=== PATIENT | male | born 1965 | race Caucasian/White ===

== ENCOUNTER 2017-02-10 14:05 | Emergency (ER) | payer BC, MEDICAID ==
[2017-02-10 14:09] VITALS: BP 145/96; PULSE 70; RESP 20; TEMP 97.8
[2017-02-10] MEDS ORDERED: ORPHENADRINE 30 MG/ML 2 ML VIAL IM STA (14:51)
--- NOTE | 2017-02-10 15:48 | XR ---
EXAMINATION TYPE: XR lumbosacral spine min 4V DATE OF EXAM: 02/10/2017 CLINICAL HISTORY: pain COMPARISON: NONE TECHNIQUE: Frontal, lateral, and oblique images of the lumbar spine are obtained. FINDINGS: There are 5 lumbar type vertebral bodies identified. The lumbar spine shows satisfactory alignment without evidence of acute fracture or dislocation. Vertebral body heights are within normal limits. Severe degenerative disc space narrowing and vacuum disc at L4-5 and L5-S1. Ventral and dors al spondylosis is identified. Bilateral foraminal encroachment at each of these levels. The overlyi ng soft tissue appears unremarkable. IMPRESSION: No acute fracture or dislocation is seen in the lumbar spine. Degenerative changes as di scussed. ICD 10 NO FRACTURE, INITIAL EVALUATION
--- NOTE | 2017-02-10 16:03 | ED ---
Back Pain HPI - General Chief Complaint: Back Pain/Injury Stated Complaint: Back Pain Time Seen by Provider: 02/10/17 14:30 Source: patient Limitations: no limitations - History of Present Illness Initial Comments: Patient is a 51-year-old male presenting to the emergency department with complaints of lumbar sacral back pain primarily right side. Patient states he had a sore back from fishing over the last 3 days and when he bent over to tie his shoe yesterday he felt his lower back give out. Patient states he drove from [place] to [place] today. Patient currently complains of right-sided lumbar back pain, related 8 out of 10, described as sharp, exacerbated with movement, relieved with rest, radiating down his right buttocks. Patient denies recent illness, fevers, nausea, vomiting, shortness breath, chest pain, abdominal pain, distal paresthesia. Patient denies urinary or fecal incontinence. Patient denies saddle anesthesia. No treatment prior to arrival. Patient denies history of similar episode. - Related Data Home Medications Medication Instructions Recorded Confirmed Ibuprofen [Motrin] 800 mg PO DAILY PRN 02/10/17 02/10/17 Irbesartan/Hydrochlorothiazide 1 tab PO DAILY 02/10/17 02/10/17 [Irbesartan-Hctz 300-12.5 mg Tb] Multivitamins, Thera [Multivitamin 1 tab PO DAILY 02/10/17 02/10/17 (formulary)] Previous Rx's Medication Instructions Recorded HYDROcodone/APAP 5-325MG [[place] 1 tab PO Q6H PRN #12 tab 02/10/17 5-325] Orphenadrine [Norflex] 100 mg PO Q12H #10 tablet.er 02/10/17 methylPREDNISolone Dose Pack 4 mg PO DIRECTED #21 package 02/10/17 [Medrol Dose Pack] Allergies Allergy/AdvReac Type Severity Reaction Status Date / Time No Known Allergies Allergy Verified 02/10/17 14:26 Review of Systems ROS Statement: Those systems with pertinent positive or pertinent negative responses have been documented in the HPI. ROS Other: All systems not noted in ROS Statement are negative. Past Medical History Past Medical History: Hypertension Additional Past Medical History / Comment(s): diverticulitis History of Any Multi-Drug Resistant Organisms: None Reported Past Surgical History: Orthopedic Surgery Additional Past Surgical History / Comment(s): left hand Past Psychological History: No Psychological Hx Reported Smoking Status: Never smoker Past Alcohol Use History: None Reported Past Drug Use History: None Reported General Exam Limitations: no limitations General appearance: alert, in no apparent distress Head exam: Present: atraumatic, normocephalic, normal inspection Eye exam: Present: normal appearance ENT exam: Present: normal exam, mucous membranes moist, normal external ear exam Neck exam: Present: normal inspection, full ROM. Absent: tenderness, lymphadenopathy Respiratory exam: Present: normal lung sounds bilaterally. Absent: respiratory distress, wheezes, rales, rhonchi, stridor Cardiovascular Exam: Present: regular rate, normal rhythm, normal heart sounds. Absent: systolic murmur, diastolic murmur, rubs, gallop, clicks GI/Abdominal exam: Present: soft, normal bowel sounds. Absent: tenderness Extremities exam: Present: normal inspection, full ROM. Absent: tenderness Back exam: Present: paraspinal tenderness (Right-sided). Absent: full ROM ( Decreased range of motion with flexion and extension and rotation), CVA tenderness (R), CVA tenderness (L), muscle spasm, vertebral tenderness, rash noted Expanded Back exam: Absent: saddle anesthesia Back exam: Sciatic Notch Tenderness: Right, Negative Straight Leg Raising: Left , Right Neurological exam: Present: alert, oriented X3, CN II-XII intact, abnormal gait. Absent: motor sensory deficit Psychiatric exam: Present: normal affect, normal mood Skin exam: Present: warm, dry, intact, normal color Course Vital Signs 02/10/17 14:07 Temperature 97.8 F Pulse Rate 70 Respiratory 20 Rate Blood Pressure 145/96 O2 Sat by Pulse 98 Oximetry Medical Decision Making - Medical Decision Making Sciatica to right lumbar region. Lumbar spine x-ray with evidence of degenerative changes without acute fractures. Patient treated with Norflex in the emergency department. Patient given prescription for steroids, pain medicine, and muscle relaxer. Patient instructed to follow-up with primary care and orthopedic service as needed. Patient agrees with treatment plan. Discharge instructions and return parameters reviewed. - Radiology Data Radiology results: report reviewed X-ray lumbosacral spine: No acute fracture or dislocation is seen in the lumbar spine. Severe degenerative disc space narrowing and vacuum disc at L4-5 and L5- S1. Ventral and dorsal spondylosis is identified. Bilateral foraminal encroachment at each of these levels. Overlying soft tissue appears unremarkable. Disposition Clinical Impression: Sciatica, Degenerative disc disease, lumbar Disposition: HOME SELF-CARE Condition: Good Instructions: Sciatica (ED), Acute Low Back Pain (ED), Lower Back Exercises (ED ) Additional Instructions: Continue pain medication, steroid pack, and muscle relaxers as prescribed. Apply ice or heat for comfort. Avoid bed rest. Follow-up with primary care physician and orthopedic service for persistent pain. Please return to the emergency department with any new or worsening symptoms. Prescriptions: HYDROcodone/APAP 5-325MG [[place] 5-325] 1 tab PO Q6H PRN #12 tab PRN Reason: Pain methylPREDNISolone Dose Pack [Medrol Dose Pack] 4 mg PO DIRECTED #21 package Orphenadrine [Norflex] 100 mg PO Q12H #10 tablet.er Referrals: None,Stated [REFERRING] - 1-2 days Kurt Umana MD [STAFF PHYSICIAN] - 1-2 days Time of Disposition: 16:03
== END 2017-02-10 16:21 | disposition home or self-care (01) ==
LOC: EC 14:05
DX: M51.16 Intervertebral disc disorders with radiculopathy, lumbar region (principal); M47.896 Other spondylosis, lumbar region; I10 Essential (primary) hypertension; Z79.899 Other long term (current) drug therapy
CPT/HCPCS: 99283; 96372; 72110; J2360

== ENCOUNTER 2018-01-26 09:35 | Inpatient (IN) | payer BC, MEDICAID ==
[2018-01-26] MEDS ORDERED: PIPERACILLIN-TAZOBACTAM 3.375 GM in DEXTROSE/WATER 1 50ML.BAG IVPB STA (10:16)
--- NOTE | 2018-01-26 10:19 | ED ---
General Adult HPI - General Chief complaint: Abdominal Pain Stated complaint: ABNORMAL CT Time Seen by Provider: 01/26/18 10:09 Source: patient, family, RN notes reviewed Mode of arrival: ambulatory Limitations: no limitations - History of Present Illness Initial comments: Patient is a pleasant 52-year-old male presenting to the emergency Department with abdominal discomfort. Symptoms have been close to 2 weeks. Patient saw his doctor and was started on antibiotics. Symptoms did not improve and patient had antibiotics changed. Patient then had computed tomography scan done 2 days ago. Patient got call with report of abscess, questionable air pocket. Patient was advised to go to the emergency department for IV antibiotics. Patient does have a history of similar symptoms previously associated with diverticulitis. No fevers. No nausea vomiting. Normal appetite. No constipation or diarrhea. - Related Data Home Medications Medication Instructions Recorded Confirmed Irbesartan/Hydrochlorothiazide 1 tab PO DAILY 02/10/17 01/26/18 [Irbesartan-Hctz 300-12.5 mg Tb] Ciprofloxacin HCl [Cipro] 500 mg PO Q12HR 01/26/18 01/26/18 Escitalopram [Lexapro] 10 mg PO HS 01/26/18 01/26/18 L.acidoph,Paracasei, B.lactis 1 cap PO DAILY 01/26/18 01/26/18 [Probiotic] metroNIDAZOLE [Flagyl] 500 mg PO TID 01/26/18 01/26/18 Allergies Allergy/AdvReac Type Severity Reaction Status Date / Time No Known Allergies Allergy Verified 01/26/18 09:58 Review of Systems ROS Statement: Those systems with pertinent positive or pertinent negative responses have been documented in the HPI. ROS Other: All systems not noted in ROS Statement are negative. Constitutional: Denies: fever Eyes: Denies: eye pain ENT: Denies: ear pain Respiratory: Denies: cough Cardiovascular: Denies: chest pain Endocrine: Denies: fatigue Gastrointestinal: Reports: abdominal pain. Denies: nausea, vomiting, diarrhea, constipation Genitourinary: Denies: dysuria Musculoskeletal: Denies: back pain Skin: Denies: rash Neurological: Denies: weakness Past Medical History Past Medical History: Hypertension Additional Past Medical History / Comment(s): diverticulitis History of Any Multi-Drug Resistant Organisms: None Reported Past Surgical History: Orthopedic Surgery Additional Past Surgical History / Comment(s): left hand Past Psychological History: No Psychological Hx Reported Smoking Status: Never smoker Past Alcohol Use History: None Reported Past Drug Use History: None Reported General Exam Limitations: no limitations General appearance: alert, in no apparent distress Head exam: Present: atraumatic Eye exam: Present: normal appearance, PERRL ENT exam: Present: normal oropharynx Neck exam: Present: normal inspection Respiratory exam: Present: normal lung sounds bilaterally Cardiovascular Exam: Present: regular rate, normal rhythm GI/Abdominal exam: Present: soft, tenderness (Mild tenderness left lower quadrant). Absent: distended, guarding, rebound, rigid, pulsatile mass Extremities exam: Present: normal inspection Neurological exam: Present: alert Psychiatric exam: Present: normal affect, normal mood Skin exam: Present: normal color Course Vital Signs 01/26/18 01/26/18 01/26/18 09:48 10:53 12:30 Temperature 98.4 F Pulse Rate 69 62 55 L Respiratory 18 18 18 Rate Blood Pressure 124/85 111/63 111/63 O2 Sat by Pulse 95 96 99 Oximetry 01/26/18 13:06 Temperature Pulse Rate 54 L Respiratory 18 Rate Blood Pressure 109/70 O2 Sat by Pulse 97 Oximetry EKG Findings - EKG Comments: EKG Findings:: Sinus bradycardia 53. MT 182. QRS 110. QT 448. QTC 420. Normal axis. Normal QRS. No acute ST change. Medical Decision Making - Medical Decision Making Computed tomography scan from outside facility shows some diverticulosis without diverticulitis. There are small air collections within a thickened portion of the colonic wall suspicious for localized intramural abscess. Patient reevaluated. Patient and family updated. Case was discussed in detail with Dr. paul from [facility] emergency department physician, who will admit. Case also discussed in detail with Dr. Ruiz, who will consult. IV antibiotics have been started. - Lab Data Result diagrams: 01/26/18 11:19 01/26/18 10:50 Lab Results 01/26/18 01/26/18 01/26/18 Range/Units 10:50 10:50 11:19 WBC 6.8 (3.8-10.6) k/uL RBC 5.30 (4.30-5.90) m/uL Hgb 15.8 (13.0-17.5) gm/dL Hct 45.9 (39.0-53.0) % MCV 86.6 (80.0-100.0) fL MCH 29.8 (25.0-35.0) pg MCHC 34.4 (31.0-37.0) g/dL RDW 13.3 (11.5-15.5) % Plt Count 252 (150-450) k/uL Neutrophils % 58 % Lymphocytes % 28 % Monocytes % 9 % Eosinophils % 2 % Basophils % 1 % Neutrophils # 4.0 (1.3-7.7) k/uL Lymphocytes # 1.9 (1.0-4.8) k/uL Monocytes # 0.6 (0-1.0) k/uL Eosinophils # 0.1 (0-0.7) k/uL Basophils # 0.1 (0-0.2) k/uL PT (9.0-12.0) sec INR (<1.2) APTT (22.0-30.0) sec Sodium 137 (137-145) mmol/L Potassium 4.4 (3.5-5.1) mmol/L Chloride 102 (98-107) mmol/L Carbon Dioxide 23 (22-30) mmol/L Anion Gap 12 mmol/L BUN 16 (9-20) mg/dL Creatinine 0.80 (0.66-1.25) mg/dL Est GFR (CKD-EPI)AfAm >90 (>60 ml/min/1.73 sqM) Est GFR (CKD-EPI)NonAf >90 (>60 ml/min/1.73 sqM) Glucose 105 H (74-99) mg/dL Plasma Lactic Acid Porfirio 1.5 (0.7-2.0) mmol/L Calcium 9.6 (8.4-10.2) mg/dL Total Bilirubin 0.6 (0.2-1.3) mg/dL AST 41 (17-59) U/L ALT 71 (21-72) U/L Alkaline Phosphatase 53 (38-126) U/L Total Protein 6.9 (6.3-8.2) g/dL Albumin 4.3 (3.5-5.0) g/dL 01/26/18 Range/Units 11:19 WBC (3.8-10.6) k/uL RBC (4.30-5.90) m/uL Hgb (13.0-17.5) gm/dL Hct (39.0-53.0) % MCV (80.0-100.0) fL MCH (25.0-35.0) pg MCHC (31.0-37.0) g/dL RDW (11.5-15.5) % Plt Count (150-450) k/uL Neutrophils % % Lymphocytes % % Monocytes % % Eosinophils % % Basophils % % Neutrophils # (1.3-7.7) k/uL Lymphocytes # (1.0-4.8) k/uL Monocytes # (0-1.0) k/uL Eosinophils # (0-0.7) k/uL Basophils # (0-0.2) k/uL PT 11.3 (9.0-12.0) sec INR 1.2 H (<1.2) APTT 24.0 (22.0-30.0) sec Sodium (137-145) mmol/L Potassium (3.5-5.1) mmol/L Chloride (98-107) mmol/L Carbon Dioxide (22-30) mmol/L Anion Gap mmol/L BUN (9-20) mg/dL Creatinine (0.66-1.25) mg/dL Est GFR (CKD-EPI)AfAm (>60 ml/min/1.73 sqM) Est GFR (CKD-EPI)NonAf (>60 ml/min/1.73 sqM) Glucose (74-99) mg/dL Plasma Lactic Acid Porfirio (0.7-2.0) mmol/L Calcium (8.4-10.2) mg/dL Total Bilirubin (0.2-1.3) mg/dL AST (17-59) U/L ALT (21-72) U/L Alkaline Phosphatase (38-126) U/L Total Protein (6.3-8.2) g/dL Albumin (3.5-5.0) g/dL - Radiology Data Radiology results: image reviewed (Abdominal x-ray shows no acute process) Disposition Clinical Impression: Infection as cause of abscess of colon Disposition: ADMITTED IP TO THIS [facility] Referrals: Berry Herrera MD [Primary Care Provider] - 1-2 days Decision Time: 13:43
[2018-01-26] MEDS: SODIUM CHLORIDE 0.9% 500 ML IV SCH (10:56)
[2018-01-26 11:31] LABS: ALT 71 U/L (21-72); AST 41 U/L (17-59); Albumin 4.3 g/dL (3.5-5.0); Alkaline Phosphatase 53 U/L (38-126); Anion Gap 12 mmol/L; Blood Urea Nitrogen 16 mg/dL (9-20); Calcium 9.6 mg/dL (8.4-10.2); Carbon Dioxide 23 mmol/L (22-30); Chloride 102 mmol/L (98-107); Glucose 105 mg/dL (74-99); Potassium 4.4 mmol/L (3.5-5.1); Sodium 137 mmol/L (137-145); Total Bilirubin 0.6 mg/dL (0.2-1.3); Total Protein 6.9 g/dL (6.3-8.2)
[2018-01-26 11:35] LABS: Basophils # (A) 0.1 k/uL (0-0.2); Basophils % (A) 1 %; Eosinophils # (A) 0.1 k/uL (0-0.7); Eosinophils % (A) 2 %; HCT 45.9 % (39.0-53.0); HGB 15.8 gm/dL (13.0-17.5); Lymphocytes # (A) 1.9 k/uL (1.0-4.8); Lymphocytes % (A) 28 %; MCH 29.8 pg (25.0-35.0); MCHC 34.4 g/dL (31.0-37.0); MCV 86.6 fL (80.0-100.0); Mean Platelet Volume 6.8; Monocytes # (A) 0.6 k/uL (0-1.0); Monocytes % (A) 9 %; Neutrophils % (A) 58 %; Platelet Count 252 k/uL (150-450); RDW 13.3 % (11.5-15.5); WBC 6.8 k/uL (3.8-10.6)
[2018-01-26 11:46] LABS: INR 1.2 (<1.2); Prothrombin Time 11.3 sec (9.0-12.0)
--- NOTE | 2018-01-26 12:29 | XR ---
EXAMINATION TYPE: XR abdomen complete w decub DATE OF EXAM: 01/26/2018 COMPARISON: NONE HISTORY: History of diverticulitis is abdominal pain. TECHNIQUE: Supine, upright, and left side down lateral decubitus views of the abdomen are obtained. FINDINGS: There is no evidence for pneumoperitoneum. The bowel gas pattern is unremarkable as there is air thr oughout nondilated small and large bowel. No differential air fluid levels. No unusual calcificatio ns. Moderate degenerative changes of the lumbar and femoral acetabular joints spine. Lung bases are clear. IMPRESSION: Nonobstructive bowel gas pattern. No evidence of pneumoperitoneum.
[2018-01-26] MEDS ORDERED: ONDANSETRON 4 MG/2 ML VIAL IVP PRN (13:43)
[2018-01-26] MEDS ORDERED: MORPHINE SULFATE 2 MG/ML SYRINGE IV PRN ×2 (13:43→16:17)
[2018-01-26] MEDS ORDERED: NALOXONE 0.4 MG/ML 1 ML VIAL IV PRN ×2 (13:43→16:17)
[2018-01-26] MEDS ORDERED: ACETAMINOPHEN TAB 325 MG TAB PO PRN (16:17)
--- NOTE | 2018-01-26 16:39 | P.HPIM ---
History of Present Illness H&P Date: 01/26/18 Chief Complaint: Abdominal pain This is a 52-year-old male with past medical history of hypertension was admitted to the hospital with abdominal pain that has been gone for the last few days patient (primary care physician computed tomography scan of the abdomen was done a few days ago showed that the patient could have abdominal wall abscess patient continued to have abdominal pain so came to the ER currently is not complaining of any chest pain or shortness of breath and does not appear to be in distress Review of systems and systems has been reviewed all negative and positive findings as per HPI Past medical history hypertension Past surgical history orthopedic surgery Social history smokes occasionally Drinks occasionally Family history not known at this time Constitutional: No acute distress, conversant, pleasant Eyes: Anicteric sclerae, moist conjunctiva, no lid-lag PERRLA ENMT: Cranial nerves grossly intact Neck: Supple, FROM, no masses, or JVD No carotid bruits No thyromegaly Lungs: Clear to auscultation Clear to percussion Normal respiratory effort, no accessory muscle use Cardiovascular: Heart regular in rate and rhythm, No murmurs, gallops, or rubs No peripheral edema Abdominal: Soft with some suprapubic tenderness Skin: Normal temperature, tone, texture, turgor No induration No subcutaneous nodules No rash, lesions No ulcers Extremities: No digital cyanosis No clubbing Pedal pulses intact and symmetrical Radial pulses intact and symmetrical Normal gait and station No calf tenderness Psychiatric:Alert and oriented to person, place and time Appropriate affect Intact judgement Neuro: No obvious focal weakness Vital Signs - 24 hr 01/26/18 01/26/18 01/26/18 09:48 10:53 12:30 Temperature 98.4 F Pulse Rate 69 62 55 L Respiratory 18 18 18 Rate Blood Pressure 124/85 111/63 111/63 O2 Sat by Pulse 95 96 99 Oximetry 01/26/18 01/26/18 01/26/18 13:06 15:41 16:17 Temperature 98.4 F Pulse Rate 54 L 55 L 55 L Respiratory 18 16 16 Rate Blood Pressure 109/70 115/70 115/70 O2 Sat by Pulse 97 96 96 Oximetry Laboratory Results - last 24 hr 01/26/18 01/26/18 01/26/18 10:50 10:50 11:19 WBC 6.8 RBC 5.30 Hgb 15.8 Hct 45.9 MCV 86.6 MCH 29.8 MCHC 34.4 RDW 13.3 Plt Count 252 Neutrophils % 58 Lymphocytes % 28 Monocytes % 9 Eosinophils % 2 Basophils % 1 Neutrophils # 4.0 Lymphocytes # 1.9 Monocytes # 0.6 Eosinophils # 0.1 Basophils # 0.1 PT INR APTT Sodium 137 Potassium 4.4 Chloride 102 Carbon Dioxide 23 Anion Gap 12 BUN 16 Creatinine 0.80 Est GFR (CKD-EPI)AfAm >90 Est GFR (CKD-EPI)NonAf >90 Glucose 105 H Plasma Lactic Acid Porfirio 1.5 Calcium 9.6 Total Bilirubin 0.6 AST 41 ALT 71 Alkaline Phosphatase 53 Total Protein 6.9 Albumin 4.3 01/26/18 11:19 WBC RBC Hgb Hct MCV MCH MCHC RDW Plt Count Neutrophils % Lymphocytes % Monocytes % Eosinophils % Basophils % Neutrophils # Lymphocytes # Monocytes # Eosinophils # Basophils # PT 11.3 INR 1.2 H APTT 24.0 Sodium Potassium Chloride Carbon Dioxide Anion Gap BUN Creatinine Est GFR (CKD-EPI)AfAm Est GFR (CKD-EPI)NonAf Glucose Plasma Lactic Acid Porfirio Calcium Total Bilirubin AST ALT Alkaline Phosphatase Total Protein Albumin Assessment and plan possible abdominal wall abscess we will continue patient currently on Zosyn we will add also vancomycin Will repeat the computed tomography scan of the abdomen says that he has been contacted by the ER Hypertension DVT and GI prophylaxis We will also check cardiac enzymes and EKG Admit the patient to regular medical floor We'll keep the patient nothing by mouth and on IV hydration Until we get the computed tomography scan results Past Medical History Past Medical History: GERD/Reflux, Hypertension Additional Past Medical History / Comment(s): RT SIDE DOMINANT, diverticulitis History of Any Multi-Drug Resistant Organisms: None Reported Past Surgical History: Hernia Repair, Orthopedic Surgery, Tubal Ligation Additional Past Surgical History / Comment(s): left hand sx to reattached 2nd, 3rd and 4th digits d/t work related injury-has full function of hand, lt ing hernia repair, lt er drum replaced, egd/colonoscopy Past Anesthesia/Blood Transfusion Reactions: No Reported Reaction Smoking Status: Current some day smoker - Past Family History Mother Family Medical History: Cancer Additional Family Medical History / Comment(s): lung cancer- hx smoking Father Additional Family Medical History / Comment(s): had tb while in [place]-had scar tissue. from lung cancer Medications and Allergies Home Medications Medication Instructions Recorded Confirmed Type Irbesartan/Hydrochlorothiazide 1 tab PO DAILY 02/10/17 01/26/18 History [Irbesartan-Hctz 300-12.5 mg Tb] Ciprofloxacin HCl [Cipro] 500 mg PO Q12HR 01/26/18 01/26/18 History Escitalopram [Lexapro] 10 mg PO HS 01/26/18 01/26/18 History L.acidoph,Paracasei, B.lactis 1 cap PO DAILY 01/26/18 01/26/18 History [Probiotic] metroNIDAZOLE [Flagyl] 500 mg PO TID 01/26/18 01/26/18 History Allergies Allergy/AdvReac Type Severity Reaction Status Date / Time No Known Allergies Allergy Verified 01/26/18 09:58 Physical Exam Vitals: Vital Signs Temp Pulse Resp BP Pulse Ox 01/26/18 16:17 98.4 F 55 L 16 115/70 96 01/26/18 15:41 55 L 16 115/70 96 01/26/18 13:06 54 L 18 109/70 97 01/26/18 12:30 55 L 18 111/63 99 01/26/18 10:53 62 18 111/63 96 01/26/18 09:48 98.4 F 69 18 124/85 95 Intake and Output 01/26/18 01/26/18 01/26/18 06:59 14:59 22:59 Other: Weight 113.398 kg Results CBC & Chem 7: 01/26/18 11:19 01/26/18 10:50 Labs: Abnormal Lab Results - Last 24 Hours (Table) 01/26/18 01/26/18 Range/Units 10:50 11:19 INR 1.2 H (<1.2) Glucose 105 H (74-99) mg/dL
[2018-01-26] MEDS: PIPERACILLIN-TAZOBACTAM 3.375 GM in DEXTROSE/WATER 1 50ML.BAG IVPB SCH ×2 (17:17→23:35)
[2018-01-26] MEDS: SODIUM CHLORIDE 0.9% 1,000 ML IV SCH (17:28)
--- NOTE | 2018-01-26 17:29 | CT ---
EXAMINATION TYPE: CT abdomen pelvis w con DATE OF EXAM: 01/26/2018 COMPARISON: NONE HISTORY: lt lower quad abscess abdominal pain CT DLP: 1962 mGycm Automated exposure control for dose reduction was used. TECHNIQUE: Helical acquisition of images was performed from the lung bases through the pelvis. CONTRAST: Performed with Oral Contrast and with IV Contrast, patient injected with 100 mL of Isovue 300. FINDINGS: There is linear density at the right lung base related to atelectasis. There is no pleural effusion. Liver spleen pancreas gallbladder appear normal. Bile ducts are not dilated. There is no adrenal mass . Kidneys show satisfactory contrast opacification. There is no hydronephrosis. There is no retroperi toneal adenopathy. Ureters are not dilated. There is no ascites. There are multiple sigmoid diverticu la. There are multiple diverticula also in the remainder of the colon. There is minimal fat stranding posterior to the proximal sigmoid colon. There is no evidence of free air. Bladder distends smoothly . There is no evidence of a pelvic mass. Appendix appears normal. There is 1 cm cortical cyst on the lateral left kidney. I see no bony destructive process. There is mild spinal stenosis at L4-5 due to facet arthropathy and posterior disc herniation. IMPRESSION: SIGMOID DIVERTICULOSIS. THERE IS EVIDENCE FOR VERY MINIMAL SIGMOID DIVERTICULITIS IN THE PROXIMAL SIG MOID COLON. NO DRAINABLE FLUID COLLECTION.
[2018-01-26] MEDS ORDERED: VANCOMYCIN IV PER PHARMACY 1 EACH MISC MISCELLANE PRN (18:24)
[2018-01-26 18:54] LABS: Creatine Kinase MB 0.5 ng/mL (0.0-2.4)
[2018-01-26] MEDS: ESCITALOPRAM 10 MG TAB PO SCH (20:18)
[2018-01-26] MEDS: VANCOMYCIN 1,750 MG in SODIUM CHLORIDE 0.9% 250 ML IVPB SCH (20:20)
[2018-01-27 00:17] LABS: Creatine Kinase 87 U/L (55-170)
[2018-01-27 00:28] LABS: Creatine Kinase MB 0.6 ng/mL (0.0-2.4); Troponin I <0.012 ng/mL (0.000-0.034)
[2018-01-27] MEDS: VANCOMYCIN 1,750 MG in SODIUM CHLORIDE 0.9% 250 ML IVPB SCH (06:18)
[2018-01-27] MEDS: SODIUM CHLORIDE 0.9% 1,000 ML IV SCH ×2 (06:18→19:03)
[2018-01-27 07:00] LABS: Basophils % (A) 1 %; Eosinophils # (A) 0.1 k/uL (0-0.7); Eosinophils % (A) 2 %; HCT 44.9 % (39.0-53.0); HGB 15.9 gm/dL (13.0-17.5); Lymphocytes # (A) 1.2 k/uL (1.0-4.8); Lymphocytes % (A) 18 %; MCH 30.6 pg (25.0-35.0); MCHC 35.3 g/dL (31.0-37.0); MCV 86.7 fL (80.0-100.0); Mean Platelet Volume 6.7; Monocytes # (A) 0.6 k/uL (0-1.0); Monocytes % (A) 8 %; Neutrophils # (A) 4.7 k/uL (1.3-7.7); Neutrophils % (A) 70 %; Platelet Count 210 k/uL (150-450); RBC 5.17 m/uL (4.30-5.90); RDW 14.1 % (11.5-15.5); WBC 6.7 k/uL (3.8-10.6)
[2018-01-27 07:27] LABS: ALT 62 U/L (21-72); AST 34 U/L (17-59); Albumin 3.5 g/dL (3.5-5.0); Alkaline Phosphatase 49 U/L (38-126); Anion Gap 9 mmol/L; Blood Urea Nitrogen 14 mg/dL (9-20); Calcium 8.9 mg/dL (8.4-10.2); Carbon Dioxide 23 mmol/L (22-30); Chloride 106 mmol/L (98-107); Glucose 98 mg/dL (74-99); Potassium 4.2 mmol/L (3.5-5.1); Sodium 138 mmol/L (137-145); Total Bilirubin 0.6 mg/dL (0.2-1.3); Total Protein 5.8 g/dL (6.3-8.2)
[2018-01-27 07:41] LABS: Creatine Kinase 86 U/L (55-170)
[2018-01-27 07:53] LABS: Creatine Kinase MB 0.4 ng/mL (0.0-2.4); Troponin I <0.012 ng/mL (0.000-0.034)
[2018-01-27] MEDS: PIPERACILLIN-TAZOBACTAM 3.375 GM in DEXTROSE/WATER 1 50ML.BAG IVPB SCH ×3 (08:40→23:55)
--- NOTE | 2018-01-27 09:42 | P.GSCN ---
History of Present Illness Consult date: 01/27/18 Reason for Consult: Diverticulitis History of present illness: This a 52-year-old male with a chronic history of diverticulitis. The patient has had 3 or 4 previous attacks of diverticulitis. Patient states that 10 days ago he felt pain left lower quadrant. He was treated with oral antibiotic by his family doctor. He had an outpatient CAT scan performed by his family doctor. On his outpatient CAT scan is found to have a intramural abscess. The patient was instructed to present himself to the emergency room. He was admitted last night for treatment of diverticulitis. The patient currently denies any significant abdominal pain. Past Medical History Past Medical History: GERD/Reflux, Hypertension Additional Past Medical History / Comment(s): RT SIDE DOMINANT, diverticulitis History of Any Multi-Drug Resistant Organisms: None Reported Past Surgical History: Hernia Repair, Orthopedic Surgery, Tubal Ligation Additional Past Surgical History / Comment(s): left hand sx to reattached 2nd, 3rd and 4th digits d/t work related injury-has full function of hand, lt ing hernia repair, lt er drum replaced, egd/colonoscopy Past Anesthesia/Blood Transfusion Reactions: No Reported Reaction Smoking Status: Current some day smoker - Past Family History Mother Family Medical History: Cancer Additional Family Medical History / Comment(s): lung cancer- hx smoking Father Additional Family Medical History / Comment(s): had tb while in [place]-had scar tissue. from lung cancer Medications and Allergies Home Medications Medication Instructions Recorded Confirmed Type Irbesartan/Hydrochlorothiazide 1 tab PO DAILY 02/10/17 01/26/18 History [Irbesartan-Hctz 300-12.5 mg Tb] Ciprofloxacin HCl [Cipro] 500 mg PO Q12HR 01/26/18 01/26/18 History Escitalopram [Lexapro] 10 mg PO HS 01/26/18 01/26/18 History L.acidoph,Paracasei, B.lactis 1 cap PO DAILY 01/26/18 01/26/18 History [Probiotic] metroNIDAZOLE [Flagyl] 500 mg PO TID 01/26/18 01/26/18 History Allergies Allergy/AdvReac Type Severity Reaction Status Date / Time No Known Allergies Allergy Verified 01/26/18 09:58 Surgical - Exam Vital Signs Temp Pulse Resp BP Pulse Ox 98.4 F 69 18 124/85 95 06/15/18 09:48 01/26/18 09:48 01/26/18 09:48 01/26/18 09:48 01/26/18 09:48 - General well developed, no distress - Eyes PERRL - ENT normal pinna - Neck no masses - Respiratory normal expansion - Cardiovascular Rhythm: regular - Abdomen Abdomen: soft, non tender Results - Labs 01/27/18 06:39 01/27/18 06:39 Abnormal Lab Results - Last 24 Hours (Table) 01/26/18 01/26/18 01/27/18 Range/Units 10:50 11:19 06:39 INR 1.2 H (<1.2) Glucose 105 H (74-99) mg/dL Total Protein 5.8 L (6.3-8.2) g/dL Diabetes panel 01/26/18 01/27/18 Range/Units 10:50 06:39 Sodium 137 138 (137-145) mmol/L Potassium 4.4 4.2 (3.5-5.1) mmol/L Chloride 102 106 (98-107) mmol/L Carbon Dioxide 23 23 (22-30) mmol/L BUN 16 14 (9-20) mg/dL Creatinine 0.80 0.91 (0.66-1.25) mg/dL Glucose 105 H 98 (74-99) mg/dL Calcium 9.6 8.9 (8.4-10.2) mg/dL AST 41 34 (17-59) U/L ALT 71 62 (21-72) U/L Alkaline Phosphatase 53 49 (38-126) U/L Total Protein 6.9 5.8 L (6.3-8.2) g/dL Albumin 4.3 3.5 (3.5-5.0) g/dL Calcium panel 01/26/18 01/27/18 Range/Units 10:50 06:39 Calcium 9.6 8.9 (8.4-10.2) mg/dL Albumin 4.3 3.5 (3.5-5.0) g/dL Pituitary panel 01/26/18 01/27/18 Range/Units 10:50 06:39 Sodium 137 138 (137-145) mmol/L Potassium 4.4 4.2 (3.5-5.1) mmol/L Chloride 102 106 (98-107) mmol/L Carbon Dioxide 23 23 (22-30) mmol/L BUN 16 14 (9-20) mg/dL Creatinine 0.80 0.91 (0.66-1.25) mg/dL Glucose 105 H 98 (74-99) mg/dL Calcium 9.6 8.9 (8.4-10.2) mg/dL Adrenal panel 01/26/18 01/27/18 Range/Units 10:50 06:39 Sodium 137 138 (137-145) mmol/L Potassium 4.4 4.2 (3.5-5.1) mmol/L Chloride 102 106 (98-107) mmol/L Carbon Dioxide 23 23 (22-30) mmol/L BUN 16 14 (9-20) mg/dL Creatinine 0.80 0.91 (0.66-1.25) mg/dL Glucose 105 H 98 (74-99) mg/dL Calcium 9.6 8.9 (8.4-10.2) mg/dL Total Bilirubin 0.6 0.6 (0.2-1.3) mg/dL AST 41 34 (17-59) U/L ALT 71 62 (21-72) U/L Alkaline Phosphatase 53 49 (38-126) U/L Total Protein 6.9 5.8 L (6.3-8.2) g/dL Albumin 4.3 3.5 (3.5-5.0) g/dL Assessment and Plan Assessment: Chronic diverticulitis. Patient is almost pain free. We'll continue IV antibiotics. We will anticipate discharge in the a.m.
--- NOTE | 2018-01-27 11:42 | P.PN ---
Subjective Progress Note Date: 01/27/18 Principal diagnosis: Patient feels okay abdominal pain improved no chest pain no shortness of breath Constitutional: No acute distress, conversant, pleasant Eyes: Anicteric sclerae, moist conjunctiva, no lid-lag PERRLA ENMT: NC/AT Oropharynx clear, no erythema, exudates Neck: Supple, FROM, no masses, or JVD No carotid bruits No thyromegaly Lungs: Clear to auscultation Clear to percussion Normal respiratory effort, no accessory muscle use Cardiovascular: Heart regular in rate and rhythm, No murmurs, gallops, or rubs No peripheral edema Abdominal: Soft Nontender, Skin: Normal temperature, tone, texture, turgor No induration No subcutaneous nodules No rash, lesions No ulcers Extremities: No digital cyanosis No clubbing Pedal pulses intact and symmetrical Radial pulses intact and symmetrical Normal gait and station No calf tenderness Psychiatric:Alert and oriented to person, place and time Appropriate affect Intact judgement Neuro: No focal weakness Laboratory Results - last 24 hr 01/26/18 01/26/18 01/26/18 11:19 17:49 23:24 WBC RBC Hgb Hct MCV MCH MCHC RDW Plt Count Neutrophils % Lymphocytes % Monocytes % Eosinophils % Basophils % Neutrophils # Lymphocytes # Monocytes # Eosinophils # Basophils # PT 11.3 INR 1.2 H APTT 24.0 Sodium Potassium Chloride Carbon Dioxide Anion Gap BUN Creatinine Est GFR (CKD-EPI)AfAm Est GFR (CKD-EPI)NonAf Glucose Calcium Total Bilirubin AST ALT Alkaline Phosphatase Total Creatine Kinase 91 87 CK-MB (CK-2) 0.5 0.6 CK-MB (CK-2) Rel Index 0.5 0.7 Troponin I <0.012 Total Protein Albumin 01/27/18 01/27/18 01/27/18 06:39 06:39 06:39 WBC 6.7 RBC 5.17 Hgb 15.9 Hct 44.9 MCV 86.7 MCH 30.6 MCHC 35.3 RDW 14.1 Plt Count 210 Neutrophils % 70 Lymphocytes % 18 Monocytes % 8 Eosinophils % 2 Basophils % 1 Neutrophils # 4.7 Lymphocytes # 1.2 Monocytes # 0.6 Eosinophils # 0.1 Basophils # 0.0 PT INR APTT Sodium 138 Potassium 4.2 Chloride 106 Carbon Dioxide 23 Anion Gap 9 BUN 14 Creatinine 0.91 Est GFR (CKD-EPI)AfAm >90 Est GFR (CKD-EPI)NonAf >90 Glucose 98 Calcium 8.9 Total Bilirubin 0.6 AST 34 ALT 62 Alkaline Phosphatase 49 Total Creatine Kinase 86 CK-MB (CK-2) 0.4 CK-MB (CK-2) Rel Index 0.5 Troponin I <0.012 Total Protein 5.8 L Albumin 3.5 Vital Signs 01/26/18 01/26/18 01/26/18 09:48 10:53 12:30 Temperature 98.4 F Pulse Rate 69 62 55 L Pulse Rate [ Supine Pulse Oximetery] Respiratory 18 18 18 Rate Blood Pressure 124/85 111/63 111/63 Blood Pressure [Right Arm Supine] O2 Sat by Pulse 95 96 99 Oximetry 01/26/18 01/26/18 01/26/18 13:06 15:41 16:00 Temperature Pulse Rate 54 L 55 L Pulse Rate [ Supine Pulse Oximetery] Respiratory 18 16 16 Rate Blood Pressure 109/70 115/70 Blood Pressure [Right Arm Supine] O2 Sat by Pulse 97 96 Oximetry 01/26/18 01/26/18 01/27/18 16:17 23:00 06:36 Temperature 98.4 F 97.0 F L 98.4 F Pulse Rate 55 L Pulse Rate [ 62 58 L Supine Pulse Oximetery] Respiratory 16 18 18 Rate Blood Pressure 115/70 Blood Pressure 126/73 124/75 [Right Arm Supine] O2 Sat by Pulse 96 96 96 Oximetry Diverticulitis we will continue patient on current IV antibiotics Abdominal pain resolved Advance diet as tolerated Anticipate discharge in a.m. Objective - Vital Signs Vital signs: Vital Signs Temp 98.4 F 01/27/18 06:36 Pulse 58 L 01/27/18 06:36 Resp 18 01/27/18 06:36 BP 124/75 01/27/18 06:36 Pulse Ox 96 01/27/18 06:36 Intake & Output 01/26/18 01/27/18 01/27/18 18:59 06:59 18:59 Intake Total 0 Balance 0 Weight 113.398 kg Intake: Oral 0 Other: Voiding Method Toilet # Voids 1 - Labs CBC & Chem 7: 01/27/18 06:39 01/27/18 06:39 Labs: Abnormal Lab Results - Last 24 Hours (Table) 06/15/18 06/16/18 Range/Units 11:19 06:39 INR 1.2 H (<1.2) Total Protein 5.8 L (6.3-8.2) g/dL
[2018-01-27] MEDS: ESCITALOPRAM 10 MG TAB PO SCH (21:10)
[2018-01-28 01:04] VITALS: RESP 18
[2018-01-28] MEDS: SODIUM CHLORIDE 0.9% 1,000 ML IV SCH (05:28)
[2018-01-28 06:20] VITALS: BP 147/95; PULSE 64; TEMP 98.1
[2018-01-28] MEDS: PIPERACILLIN-TAZOBACTAM 3.375 GM in DEXTROSE/WATER 1 50ML.BAG IVPB SCH (08:55)
--- NOTE | 2018-01-28 12:03 | P.PN ---
Progress Note - Text Progress Note Date: 01/28/18 The patient feels well. He has no complaints of pain. On exam is lesser stable. His abdomen soft. Resolving diverticulitis. Patient be discharged home. He'll be seen in the office next week.
--- NOTE | 2018-01-28 12:18 | P.DS ---
Providers Date of admission: 01/26/18 13:43 Attending physician: Tanmay Soto MD This is a 52-year-old male admitted to the hospital with abdominal pain and diverticulitis started on IV antibiotics and nothing by mouth diet deconditioned patient significantly improved the patient is not vomiting no having any significant abdominal pain today and tolerating diet patient has been evaluated by surgery due to the hospital stay with no surgical intervention needed Review of systems and systems as reviewed all negative and positive findings as per HPI Constitutional: No acute distress, conversant, pleasant Eyes: Anicteric sclerae, moist conjunctiva, no lid-lag PERRLA ENMT: Cranial nerves grossly intact Neck: Supple, FROM, no masses, or JVD No carotid bruits No thyromegaly Lungs: Clear to auscultation Clear to percussion Normal respiratory effort, no accessory muscle use Cardiovascular: Heart regular in rate and rhythm, No murmurs, gallops, or rubs No peripheral edema Abdominal: Soft Nontender, no guarding, rebound or rigidity Abdomen moving with respiration Normoactive bowel sounds No hepatomegaly, No splenomegaly No palpable mass No abdominal wall hernia noted Skin: Normal temperature, tone, texture, turgor No induration No subcutaneous nodules No rash, lesions No ulcers Extremities: No digital cyanosis No clubbing Pedal pulses intact and symmetrical Radial pulses intact and symmetrical Normal gait and station No calf tenderness Psychiatric:Alert and oriented to person, place and time Appropriate affect Intact judgement Neuro: No focal weakness Vital Signs - 24 hr 01/27/18 01/27/18 01/28/18 14:33 23:00 06:19 Temperature 99.1 F 98.5 F 98.1 F Pulse Rate [ 57 L 66 64 Supine Pulse Oximetery] Respiratory 16 18 18 Rate Blood Pressure 133/89 151/83 147/95 [Right Arm Supine] O2 Sat by Pulse 92 L 95 95 Oximetry Assessment and plan and discharge plan Diverticulitis clinically improved to continue antibiotics at least for 1 week and to follow-up with surgery in a week Patient advised to follow-up with primary care physician abdominal pain completely resolved Repeated computed tomography scan did not show any abdominal wall abscess all questions and concerns of the patient has been addressed Patient has been discharged in a stable condition Consults: 01/26/18 13:44 Consult Physician Urgent Consulting Provider: Pepe Ruiz Consult Reason/Comments: colon wall abcess Do you want consulting provider notified?: Already Contacted Primary care physician: Berry Herrera Plan - Discharge Summary Discharge Rx Participant: No New Discharge Prescriptions: New Levofloxacin [Levaquin] 750 mg PO DAILY #7 tab metroNIDAZOLE [Flagyl] 500 mg PO Q8HR #21 tab Escitalopram [Lexapro] 10 mg PO HS tab Continue Irbesartan/Hydrochlorothiazide [Irbesartan-Hctz 300-12.5 mg Tb] 1 tab PO DAILY metroNIDAZOLE [Flagyl] 500 mg PO TID Escitalopram [Lexapro] 10 mg PO HS L.acidoph,Paracasei, B.lactis [Probiotic] 1 cap PO DAILY Discontinued Ciprofloxacin HCl [Cipro] 500 mg PO Q12HR Discharge Medication List Irbesartan/Hydrochlorothiazide [Irbesartan-Hctz 300-12.5 mg Tb] 1 tab PO DAILY 02/10/17 [History] Escitalopram [Lexapro] 10 mg PO HS 01/26/18 [History] L.acidoph,Paracasei, B.lactis [Probiotic] 1 cap PO DAILY 01/26/18 [History] metroNIDAZOLE [Flagyl] 500 mg PO TID 01/26/18 [History] Escitalopram [Lexapro] 10 mg PO HS tab 01/28/18 [Rx] Levofloxacin [Levaquin] 750 mg PO DAILY #7 tab 01/28/18 [Rx] metroNIDAZOLE [Flagyl] 500 mg PO Q8HR #21 tab 01/28/18 [Rx] Follow up Appointment(s)/Referral(s): Berry Herrera MD [Primary Care Provider] - 1-2 days (please call Monday to make follow up appointment) Pepe Ruiz MD [STAFF PHYSICIAN] - 1 Week Patient Instructions/Handouts: Diverticulitis (GEN), Diverticulitis Diet (GEN) Discharge Disposition: HOME SELF-CARE
== END 2018-01-28 12:24 | disposition home or self-care (01) | DRG 392 ==
LOC: EC 09:35 → 4MS4W 13:43
PROVIDERS: ADMIT Internal Medicine; ATTEND Internal Medicine
DX: K57.32 Diverticulitis of large intestine without perforation or abscess without bleeding (principal); F17.200 Nicotine dependence, unspecified, uncomplicated; I10 Essential (primary) hypertension; K21.9 Gastro-esophageal reflux disease without esophagitis; Z80.1 Family history of malignant neoplasm of trachea, bronchus and lung; Z79.899 Other long term (current) drug therapy
CPT/HCPCS: 36415; 74021; 74177; 80053; 82550; 82553; 83605; 84484; 85025; 85610; 85730; 87040; 93005; 96361; 96365; 96366; 99285

== ENCOUNTER 2018-03-07 18:37 | Emergency (ER) | payer BC, MEDICAID ==
[2018-03-07 18:43] VITALS: RESP 18
[2018-03-07] MEDS ORDERED: PANTOPRAZOLE 40 MG/10 ML VIAL IVP STA (19:12)
[2018-03-07] MEDS ORDERED: ONDANSETRON 4 MG/2 ML VIAL IVP STA (19:12)
[2018-03-07] MEDS ORDERED: SODIUM CHLORIDE 0.9% 1,000 ML IV STA ×2 (19:12)
[2018-03-07] MEDS ORDERED: MORPHINE SULFATE 4 MG/ML SYRINGE IV STA (19:12)
[2018-03-07 19:56] LABS: ALT 37 U/L (21-72); AST 25 U/L (17-59); Albumin 4.2 g/dL (3.5-5.0); Alkaline Phosphatase 59 U/L (38-126); Amylase 49 U/L (30-110); Anion Gap 11 mmol/L; Basophils % (A) 0 %; Blood Urea Nitrogen 15 mg/dL (9-20); Calcium 9.8 mg/dL (8.4-10.2); Carbon Dioxide 21 mmol/L (22-30); Chloride 103 mmol/L (98-107); Eosinophils # (A) 0.1 k/uL (0-0.7); Eosinophils % (A) 1 %; Glucose 99 mg/dL (74-99); HCT 45.2 % (39.0-53.0); HGB 15.7 gm/dL (13.0-17.5); Lipase 96 U/L (23-300); Lymphocytes # (A) 1.3 k/uL (1.0-4.8); Lymphocytes % (A) 12 %; MCHC 34.8 g/dL (31.0-37.0); MCV 86.1 fL (80.0-100.0); Mean Platelet Volume 6.7; Monocytes # (A) 0.8 k/uL (0-1.0); Monocytes % (A) 8 %; Neutrophils # (A) 8.3 k/uL (1.3-7.7); Neutrophils % (A) 77 %; Platelet Count 216 k/uL (150-450); Potassium 4.4 mmol/L (3.5-5.1); RBC 5.24 m/uL (4.30-5.90); RDW 13.1 % (11.5-15.5); Sodium 135 mmol/L (137-145); Total Bilirubin 0.5 mg/dL (0.2-1.3); Total Protein 6.8 g/dL (6.3-8.2); WBC 10.8 k/uL (3.8-10.6)
[2018-03-07 20:26] LABS: Appearance,Urine Clear (Clear); Bilirubin,Urine Negative (Negative); Blood,Urine Trace (Negative); Color,Urine Yellow; Glucose,Urine (UA) Negative (Negative); Ketones,Urine Negative (Negative); Leukocyte Esterase,Urine Negative (Negative); Mucus,Urine Rare /hpf; Nitrite,Urine Negative (Negative); Protein,Urine Negative (Negative); RBC,Urine 1 /hpf (0-5); Specific Gravity,Urine 1.017 (1.001-1.035); Urobilinogen,Urine <2.0 mg/dL (<2.0)
--- NOTE | 2018-03-07 20:26 | ED ---
General Adult HPI - General Chief complaint: Abdominal Pain Stated complaint: abd pain Time Seen by Provider: 03/07/18 19:12 Source: patient, RN notes reviewed, old records reviewed Mode of arrival: ambulatory Limitations: no limitations - History of Present Illness Initial comments: This is a 52-year-old male the ER for evaluation. Patient resents today for evaluation regards to abdominal pain. Acute on chronic abdominal pain. Patient has no history of diverticulitis. Patient scheduled for bowel surgery regarding the complications of diverticulitis. Patient's abdominal pain increased today and throughout the day. Denies fevers no nausea vomiting no diarrhea. - Related Data Home Medications Medication Instructions Recorded Confirmed Irbesartan/Hydrochlorothiazide 1 tab PO DAILY 02/10/17 03/07/18 [Irbesartan-Hctz 300-12.5 mg Tb] Ciprofloxacin HCl [Cipro] 500 mg PO Q12HR 03/07/18 03/07/18 L. Rhamnosus GG/Inulin [Culturelle 1 tab PO DAILY 03/07/18 03/07/18 Chewable Tablet] Previous Rx's Medication Instructions Recorded Escitalopram [Lexapro] 10 mg PO HS tab 01/28/18 metroNIDAZOLE [Flagyl] 500 mg PO Q8HR #21 tab 01/28/18 Metoclopramide [Reglan] 10 mg PO TID PRN #15 tab 03/07/18 Ondansetron Odt [Zofran ODT] 4 mg PO Q8HR PRN #10 tab 03/07/18 Allergies Allergy/AdvReac Type Severity Reaction Status Date / Time No Known Allergies Allergy Verified 03/07/18 19:14 Review of Systems ROS Statement: Those systems with pertinent positive or pertinent negative responses have been documented in the HPI. ROS Other: All systems not noted in ROS Statement are negative. Past Medical History Past Medical History: GERD/Reflux, Hypertension Additional Past Medical History / Comment(s): RT SIDE DOMINANT, diverticulitis History of Any Multi-Drug Resistant Organisms: None Reported Past Surgical History: Hernia Repair, Orthopedic Surgery, Tubal Ligation Additional Past Surgical History / Comment(s): left hand sx to reattached 2nd, 3rd and 4th digits d/t work related injury-has full function of hand, lt ing hernia repair, lt er drum replaced, egd/colonoscopy Past Anesthesia/Blood Transfusion Reactions: No Reported Reaction Past Psychological History: No Psychological Hx Reported Smoking Status: Current some day smoker Past Alcohol Use History: None Reported Past Drug Use History: None Reported - Past Family History Mother Family Medical History: Cancer Additional Family Medical History / Comment(s): lung cancer- hx smoking Father Additional Family Medical History / Comment(s): had tb while in [place]-had scar tissue. from lung cancer General Exam Limitations: no limitations General appearance: alert, in no apparent distress Head exam: Present: atraumatic, normocephalic, normal inspection Eye exam: Present: normal appearance, PERRL, EOMI. Absent: scleral icterus, conjunctival injection, periorbital swelling ENT exam: Present: normal exam, mucous membranes moist Neck exam: Present: normal inspection. Absent: tenderness, meningismus, lymphadenopathy Respiratory exam: Present: normal lung sounds bilaterally. Absent: respiratory distress, wheezes, rales, rhonchi, stridor Cardiovascular Exam: Present: regular rate, normal rhythm, normal heart sounds. Absent: systolic murmur, diastolic murmur, rubs, gallop, clicks GI/Abdominal exam: Present: soft, normal bowel sounds. Absent: distended, tenderness, guarding, rebound, rigid Extremities exam: Present: normal inspection, full ROM, normal capillary refill. Absent: tenderness, pedal edema, joint swelling, calf tenderness Back exam: Present: normal inspection Neurological exam: Present: alert, oriented X3, CN II-XII intact Psychiatric exam: Present: normal affect, normal mood Skin exam: Present: warm, dry, intact, normal color. Absent: rash Course Vital Signs 03/07/18 03/07/18 03/07/18 18:41 20:30 21:47 Temperature 98.4 F 100.2 F H Pulse Rate 85 71 74 Respiratory 18 18 18 Rate Blood Pressure 130/87 128/71 120/74 O2 Sat by Pulse 98 96 96 Oximetry - Reevaluation(s) Reevaluation #1: 03/07/18 20:26 Medical record and prior hospitalization or reviewed, prior CAT scan reviewed Reevaluation #2: spoke Dr. Ruiz will follow up with patient in the office Medical Decision Making - Medical Decision Making 52 male to the ED co abdominal pain and continued diverticulitis will follow for evaluation - Lab Data Result diagrams: 03/07/18 19:30 07/25/18 19:30 Lab Results 03/07/18 03/07/18 03/07/18 Range/Units 19:30 19:30 19:30 WBC 10.8 H (3.8-10.6) k/uL RBC 5.24 (4.30-5.90) m/uL Hgb 15.7 (13.0-17.5) gm/dL Hct 45.2 (39.0-53.0) % MCV 86.1 (80.0-100.0) fL MCH 30.0 (25.0-35.0) pg MCHC 34.8 (31.0-37.0) g/dL RDW 13.1 (11.5-15.5) % Plt Count 216 (150-450) k/uL Neutrophils % 77 % Lymphocytes % 12 % Monocytes % 8 % Eosinophils % 1 % Basophils % 0 % Neutrophils # 8.3 H (1.3-7.7) k/uL Lymphocytes # 1.3 (1.0-4.8) k/uL Monocytes # 0.8 (0-1.0) k/uL Eosinophils # 0.1 (0-0.7) k/uL Basophils # 0.0 (0-0.2) k/uL Sodium 135 L (137-145) mmol/L Potassium 4.4 (3.5-5.1) mmol/L Chloride 103 (98-107) mmol/L Carbon Dioxide 21 L (22-30) mmol/L Anion Gap 11 mmol/L BUN 15 (9-20) mg/dL Creatinine 0.70 (0.66-1.25) mg/dL Est GFR (CKD-EPI)AfAm >90 (>60 ml/min/1.73 sqM) Est GFR (CKD-EPI)NonAf >90 (>60 ml/min/1.73 sqM) Glucose 99 (74-99) mg/dL Plasma Lactic Acid Porfirio 1.3 (0.7-2.0) mmol/L Calcium 9.8 (8.4-10.2) mg/dL Total Bilirubin 0.5 (0.2-1.3) mg/dL AST 25 (17-59) U/L ALT 37 (21-72) U/L Alkaline Phosphatase 59 (38-126) U/L Total Protein 6.8 (6.3-8.2) g/dL Albumin 4.2 (3.5-5.0) g/dL Amylase 49 (30-110) U/L Lipase 96 (23-300) U/L Urine Color Urine Appearance (Clear) Urine pH (5.0-8.0) Ur Specific [place] (1.001-1.035) Urine Protein (Negative) Urine Glucose (UA) (Negative) Urine Ketones (Negative) Urine Blood (Negative) Urine Nitrite (Negative) Urine Bilirubin (Negative) Urine Urobilinogen (<2.0) mg/dL Ur Leukocyte Esterase (Negative) Urine RBC (0-5) /hpf Urine Mucus (None) /hpf 03/07/18 Range/Units 20:01 WBC (3.8-10.6) k/uL RBC (4.30-5.90) m/uL Hgb (13.0-17.5) gm/dL Hct (39.0-53.0) % MCV (80.0-100.0) fL MCH (25.0-35.0) pg MCHC (31.0-37.0) g/dL RDW (11.5-15.5) % Plt Count (150-450) k/uL Neutrophils % % Lymphocytes % % Monocytes % % Eosinophils % % Basophils % % Neutrophils # (1.3-7.7) k/uL Lymphocytes # (1.0-4.8) k/uL Monocytes # (0-1.0) k/uL Eosinophils # (0-0.7) k/uL Basophils # (0-0.2) k/uL Sodium (137-145) mmol/L Potassium (3.5-5.1) mmol/L Chloride (98-107) mmol/L Carbon Dioxide (22-30) mmol/L Anion Gap mmol/L BUN (9-20) mg/dL Creatinine (0.66-1.25) mg/dL Est GFR (CKD-EPI)AfAm (>60 ml/min/1.73 sqM) Est GFR (CKD-EPI)NonAf (>60 ml/min/1.73 sqM) Glucose (74-99) mg/dL Plasma Lactic Acid Porfirio (0.7-2.0) mmol/L Calcium (8.4-10.2) mg/dL Total Bilirubin (0.2-1.3) mg/dL AST (17-59) U/L ALT (21-72) U/L Alkaline Phosphatase (38-126) U/L Total Protein (6.3-8.2) g/dL Albumin (3.5-5.0) g/dL Amylase (30-110) U/L Lipase (23-300) U/L Urine Color Yellow Urine Appearance Clear (Clear) Urine pH 6.0 (5.0-8.0) Ur Specific [place] 1.017 (1.001-1.035) Urine Protein Negative (Negative) Urine Glucose (UA) Negative (Negative) Urine Ketones Negative (Negative) Urine Blood Trace H (Negative) Urine Nitrite Negative (Negative) Urine Bilirubin Negative (Negative) Urine Urobilinogen <2.0 (<2.0) mg/dL Ur Leukocyte Esterase Negative (Negative) Urine RBC 1 (0-5) /hpf Urine Mucus Rare H (None) /hpf - Radiology Data Radiology results: report reviewed (XR kub is negative), image reviewed Disposition Clinical Impression: Abdominal pain, Diverticulitis Disposition: HOME SELF-CARE Condition: Good Instructions: Abdominal Pain (ED) Prescriptions: Metoclopramide [Reglan] 10 mg PO TID PRN #15 tab PRN Reason: nausea/vomiting Ondansetron Odt [Zofran ODT] 4 mg PO Q8HR PRN #10 tab PRN Reason: nausea/vomiting Is patient prescribed a controlled substance at d/c from ED?: No Referrals: Berry Herrera MD [Primary Care Provider] - 1-2 days
--- NOTE | 2018-03-07 21:15 | XR ---
EXAMINATION TYPE: XR abdomen acute w cxr - 5V DATE OF EXAM: 03/07/2018 COMPARISON: NONE HISTORY: Pain, history sigmoid: Abscess/diverticulitis TECHNIQUE: Supine, upright, and left side down lateral decubitus views of the abdomen are obtained. FINDINGS: There is no evidence for pneumoperitoneum. The bowel gas pattern is unremarkable as there is air throughout nondilated small and large bowel. No sizeable air fluid levels. No mass effects are seen. No unusual calcifications. IMPRESSION: Unremarkable study
[2018-03-07 21:48] VITALS: BP 120/74; PULSE 74; TEMP 100.2
== END 2018-03-07 21:54 | disposition home or self-care (01) ==
LOC: EC 18:37
DX: K57.92 Diverticulitis of intestine, part unspecified, without perforation or abscess without bleeding (principal); I10 Essential (primary) hypertension; F17.200 Nicotine dependence, unspecified, uncomplicated; Z79.84 Long term (current) use of oral hypoglycemic drugs; Z79.899 Other long term (current) drug therapy
CPT/HCPCS: 36415; 80053; 82150; 83605; 83690; 85025; 81001; 87086; 74022; 99284; 96374; 96375 ×2; 96361 ×2; J2270; J2405; C9113

== ENCOUNTER 2018-03-09 07:30 | Inpatient (IN) | payer BC, MEDICAID ==
[~2018-03-09 07:30] MED LIST: HEPARIN SODIUM,PORCINE 5,000 UNIT/ML 1 ML VIAL SQ ONE; Pre Op ABX Message 1 EACH MISC MISCELLANE ONE; metroNIDAZOLE-NS PMX 500 MG in SALINE 1 100ML.BAG IVPB ONE
[2018-03-09] MEDS ORDERED: diphenhydrAMINE 50 MG/ML 1 ML VIAL IVP PRN (11:56)
[2018-03-09] MEDS ORDERED: NALOXONE 0.4 MG/ML 1 ML VIAL IV PRN (11:56)
[2018-03-09] MEDS ORDERED: ONDANSETRON 4 MG/2 ML VIAL IVP PRN ×2 (11:56→16:27)
[2018-03-09] MEDS ORDERED: NALBUPHINE 10 MG/ML VIAL (10ML MDV) IV PRN (11:56)
[2018-03-09] MEDS ORDERED: LACTATED RINGERS 1,000 ML IV ONE ×3 (12:20→16:37)
[2018-03-09] MEDS ORDERED: LIDOCAINE 1% 20 ML VIAL (10MG/ML) FOR IV START INTRADERMA ONE (12:20)
[2018-03-09] MEDS ORDERED: DEXAMETHASONE SOD PHOS (MDV) 100 MG/10 ML VIAL IVP ONE (12:21)
[2018-03-09] MEDS ORDERED: fentaNYL (PF) 50 MCG/ML 2 ML AMP IV ONE (12:35)
[2018-03-09] MEDS ORDERED: MIDAZOLAM 2 MG/2 ML VIAL IV ONE (12:35)
--- NOTE | 2018-03-09 13:19 | P.GSHP ---
History of Present Illness H&P Date: 03/09/18 Chief Complaint: Diverticulitis This a 52-year-old male who presents today for low anterior section. Patient was rigid scheduled for colonoscopy and subsequent low anterior section in 2 weeks. However the patient also severe abdominal pain this week. The patient was seen Diane yesterday he had significant pain in the left lower quadrant. The patient's proposed low anterior section was moved up to today due to his chronic diverticulitis in the fear that he may have a diverticular perforation. Patient previous history of diverticulitis with intramural abscess. Patient' s aware the risks of surgery including possible colostomy, wound infection. Past Medical History Past Medical History: GERD/Reflux, Hypertension Additional Past Medical History / Comment(s): RT SIDE DOMINANT, diverticulitis History of Any Multi-Drug Resistant Organisms: None Reported Past Surgical History: Hernia Repair, Orthopedic Surgery, Tubal Ligation Additional Past Surgical History / Comment(s): left hand sx to reattached 2nd, 3rd and 4th digits d/t work related injury-has full function of hand, lt ing hernia repair, lt er drum replaced, egd/colonoscopy Past Anesthesia/Blood Transfusion Reactions: No Reported Reaction Past Psychological History: No Psychological Hx Reported Smoking Status: Current some day smoker Past Alcohol Use History: None Reported Past Drug Use History: None Reported - Past Family History Mother Family Medical History: Cancer Additional Family Medical History / Comment(s): lung cancer- hx smoking Father Additional Family Medical History / Comment(s): had tb while in [place]-had scar tissue. from lung cancer Medications and Allergies Home Medications Medication Instructions Recorded Confirmed Type Irbesartan/Hydrochlorothiazide 1 tab PO DAILY 02/10/17 03/09/18 History [Irbesartan-Hctz 300-12.5 mg Tb] Escitalopram [Lexapro] 10 mg PO HS tab 01/28/18 03/09/18 Rx metroNIDAZOLE [Flagyl] 500 mg PO Q8HR #21 tab 01/28/18 03/09/18 Rx Ciprofloxacin HCl [Cipro] 500 mg PO Q12HR 03/07/18 03/09/18 History Metoclopramide [Reglan] 10 mg PO TID PRN #15 tab 03/07/18 03/09/18 Rx Ondansetron Odt [Zofran ODT] 4 mg PO Q8HR PRN #10 tab 03/07/18 03/09/18 Rx Allergies Allergy/AdvReac Type Severity Reaction Status Date / Time No Known Allergies Allergy Verified 03/09/18 12:05 Surgical - Exam Vital Signs Temp Pulse Resp BP Pulse Ox 96.2 F L 75 16 137/94 97 03/09/18 12:09 03/09/18 12:09 03/09/18 12:09 03/09/18 12:09 03/09/18 12:09 - General well developed, no distress - Eyes PERRL - ENT normal pinna - Neck no masses - Respiratory normal expansion - Cardiovascular Rhythm: regular - Abdomen Mild left lower quadrant tenderness, no rebound or guarding Abdomen: soft Assessment and Plan Assessment: Chronic diverticulitis. We'll perform low anterior section.
[2018-03-09] MEDS ORDERED: ceFAZolin IN SWFI 2 GM/20 ML SYRINGE IVP ONE (13:30)
[2018-03-09] MEDS ORDERED: ePHEDrine SULFATE/0.9% NACL/PF 50 MG/5 ML SYRINGE IV ONE (13:49)
[2018-03-09] MEDS ORDERED: GLYCOPYRROLATE 0.2 MG/ML 2 ML VIAL ONE (13:49)
[2018-03-09] MEDS ORDERED: ROCURONIUM BROMIDE 10 MG/ML 10 ML VIAL IV ONE (13:49)
[2018-03-09] MEDS ORDERED: MIDAZOLAM 2 MG/2 ML VIAL ONE (13:49)
[2018-03-09] MEDS ORDERED: fentaNYL (PF) 50 MCG/ML 2 ML AMP ONE (13:49)
[2018-03-09] MEDS ORDERED: NEOSTIGMINE 1 MG/ML 10 ML VIAL ONE (13:49)
[2018-03-09] MEDS ORDERED: PROPOFOL 10 MG/ML 20 ML VIAL IV ONE (13:49)
[2018-03-09] MEDS ORDERED: LIDOCAINE 1% INJ 10MG/ML (20 ML MDV) ONE (13:49)
[2018-03-09] MEDS ORDERED: SUCCINYLCHOLINE CHLORIDE VIAL 200 MG/10 ML VIAL IV ONE (13:49)
[2018-03-09] MEDS: ROPIVACAINE 300 MG, HYDROMORPHONE (PF) 5 MG in SODIUM CHLORIDE 0.9% 190 ML EPIDURAL PRN (15:49)
[2018-03-09] MEDS ORDERED: METOCLOPRAMIDE 5 MG/ML 2 ML VIAL IVP PRN (16:27)
--- NOTE | 2018-03-09 16:33 | P.OP ---
Date of Procedure: 03/09/18 Preoperative Diagnosis: Diverticulitis Postoperative Diagnosis: Diverticulitis with chronically inflamed sigmoid colon Procedure(s) Performed: Low anterior resection Partial omentectomy Anesthesia: JANUSZ Surgeon: Peep Ruiz Estimated Blood Loss (ml): 50 Pathology: other (Sigmoid colon, omentum) Condition: stable Disposition: PACU Operative Findings: Very inflamed sigmoid colon with evidence of previous intramural wall abscess Description of Procedure: DESCRIPTION OF PROCEDURE: The patient was placed on the operating table in the supine position. Patient received a general anesthesia. Patient was then placed in the dorsal lithotomy position. The patients abdomen was prepped and draped in the usual sterile fashion. Through a low midline incision, the abdomen was entered. The Dg wound protector was placed The Bookwalter retractor was placed in the wound. The stomach appeared normal. The small bowel appeared normal. The liver appeared normal. The right colon and transverse colon appeared normal. On the left colon, there was an extensive diverticulosis noted. The sigmoid colon was then mobilized by dividing the white line of Toldt with electrocautery. At this point, the proximal sigmoid colon was transected with a GI stapler after a window had been made in the mesentery. The distal sigmoid colon was then dissected. Mesentery was taken down between Reba clamps and ligated with #0 silk ties. At a point beyond the lesion, the bowel was then transected with a Proximate stapler. This was then removed. A portion of omentum was transected and divided with the Enseal device. The the white line of Toldt's was then taken down in order to provide adequate lengthening of the sigmoid colon. At this point, the auto purse-string suture device was placed across the proximal colon and fired. The colon was then opened. The 29 mm EEA anvil was then placed into the colon and then the purse-string was secured. The EEA stapler device was then placed in the patients anus and passed into the rectum. The nail for the EEA was then brought out through the distal rectum and then attached to the anvil. The EEA stapler device was then fired. The anastomosis was inspected. There were 2 good donuts of tissue removed from the EEA stapler. The anastomosis was then tested under water and there was no air leak seen. At this point the abdomen was then irrigated. There was no bleeding seen. Fascia was closed with clean instruments The fascia was then closed with double stranded #1 PDS. The skin was closed with deja. The patient tolerated the procedure well.
[2018-03-09] MEDS ORDERED: SODIUM CHLORIDE 0.9% 1,000 ML IV ONE (17:53)
[2018-03-09 18:24] VITALS: BMI 36.9
[2018-03-09] MEDS ORDERED: hydrALAZINE HCL 20 MG/ML 1 ML VIAL IVP PRN (20:03)
[2018-03-09 20:16] LABS: Basophils % (A) 0 %; Eosinophils % (A) 0 %; HCT 41.8 % (39.0-53.0); HGB 14.2 gm/dL (13.0-17.5); Lymphocytes # (A) 0.4 k/uL (1.0-4.8); Lymphocytes % (A) 3 %; MCH 29.7 pg (25.0-35.0); MCHC 33.9 g/dL (31.0-37.0); MCV 87.5 fL (80.0-100.0); Monocytes # (A) 0.3 k/uL (0-1.0); Monocytes % (A) 3 %; Neutrophils # (A) 11.1 k/uL (1.3-7.7); Neutrophils % (A) 94 %; Platelet Count 220 k/uL (150-450); RBC 4.77 m/uL (4.30-5.90); RDW 12.6 % (11.5-15.5); WBC 11.8 k/uL (3.8-10.6)
[2018-03-09 20:29] LABS: Anion Gap 11 mmol/L; Blood Urea Nitrogen 13 mg/dL (9-20); Calcium 8.7 mg/dL (8.4-10.2); Carbon Dioxide 26 mmol/L (22-30); Chloride 96 mmol/L (98-107); Glucose 191 mg/dL (74-99); Sodium 133 mmol/L (137-145)
[2018-03-09] MEDS: PANTOPRAZOLE 40 MG/10 ML VIAL IVP SCH (21:20)
[2018-03-09] MEDS: FAMOTIDINE 20 MG/2 ML VIAL IV SCH (21:20)
[2018-03-09] MEDS: ESCITALOPRAM 10 MG TAB PO SCH (21:20)
--- NOTE | 2018-03-09 21:34 | CONS ---
CONSULTATION REASON FOR CONSULTATION: Advice regarding hypertension and other medical issues requested by Dr. Ruiz. HISTORY OF PRESENT ILLNESS: A 52-year-old gentleman with a past history of GERD, hypertension, history of degenerative joint disease, underwent low anterior resection and partial omentectomy for diverticulitis with chronically inflamed sigmoid colon. There is no history of fever, rigors or chills. No history of headache, loss consciousness or seizures at this time. PAST HISTORY: Hypertension, GERD, hernia surgery, orthopedic surgery. MEDICATIONS: Prior to admission include: 1. Flagyl 500 mg p.o. q8. 2. Zofran 4 mg q.8h p.r.n. 3. Reglan 10 mg t.i.d. p.r.n. 4.hydrochlorothiazide 300/12.5 mg p.o. daily. 5. Lexapro 10 mg q.h.s. 6. Cipro 500 mg b.i.d. ALLERGIES: None. FAMILY HISTORY: History of cancer in the family. SOCIAL HISTORY: History of alcohol and continued smoking. REVIEW OF SYSTEMS: ENT: No diminished hearing or diminished vision. CARDIOVASCULAR: No angina or palpitations. Respiratory: As mentioned earlier. GI: As mentioned earlier. : No dysuria or hematuria. Central nervous system: No numbness or weakness. ALLERGY/IMMUNOLOGY: As mentioned earlier. MUSCULOSKELETAL: As mentioned earlier. HEMATOLOGY/ONCOLOGY: No history of anemia. Endocrine: No history of diabetes or hypothyroidism. Constitutional: As mentioned earlier. Dermatology: Negative. Rheumatology: Negative. Psychiatry: As mentioned earlier. PHYSICAL EXAMINATION: Alert, oriented x3. Pulse 79, blood pressure 124/72, respiration 18, temperature is normal. Pulse ox 94% on 3 L. HEENT is conjunctivae normal. Oral mucosa moist. Neck is no jugular venous distention. No carotid bruit. No lymph node enlargement. Cardiovascular S1-S2 muffled. No S3, no S4. RESPIRATORY: Breath sounds diminished in the bases. Scattered rhonchi. No crackles. ABDOMEN: Soft, status post recent surgery. Bowel sounds diminished. Legs: No edema and no swelling. NERVOUS SYSTEM: Higher functions as mentioned earlier. Moves all four extremities. No focal motor or sensory deficits. Lymphatics: No lymph nodes palpable in the neck, axillae or groin. Skin: No ulcer, rash or bleeding. Joints: No active deforming arthropathy. LABORATORY DATA: WBC 10.8. CBC within normal limits. Coags are within normal limits done prior to admission. Otherwise, CMP showed sodium 135. Otherwise normal UA and unremarkable. ASSESSMENT: 1. Status post low anterior resection and partial omentectomy for diverticulitis with chronic inflamed sigmoid colon. 2. Hypertension. 3. History of gastroesophageal reflux disease. 4. History of hernia repair. 5. History of nicotine dependence. RECOMMENDATIONS AND DISCUSSION: This 52-year-old gentleman who presented with multiple complex medical issues, we will monitor the patient closely, recommend to resume the home medications. Monitor blood pressure closely. Otherwise once the patient is p.o. the patient's home medication may be started. Otherwise, p.r.n. medications may be used. MMODL / IJN: [id number] / MTDDebo
[2018-03-09] MEDS: HEPARIN SODIUM,PORCINE 5,000 UNIT/ML 1 ML VIAL SQ SCH (23:50)
[2018-03-09] MEDS: LACTATED RINGERS 1,000 ML IV SCH (23:50)
[2018-03-10] MEDS: FAMOTIDINE 20 MG/2 ML VIAL IV SCH ×2 (08:57→22:02)
[2018-03-10] MEDS: HYDROCHLOROTHIAZIDE 12.5 MG CAP PO SCH (08:57)
[2018-03-10] MEDS: HEPARIN SODIUM,PORCINE 5,000 UNIT/ML 1 ML VIAL SQ SCH ×2 (08:57→15:35)
[2018-03-10] MEDS: LOSARTAN 50 MG TAB PO SCH (08:57)
[2018-03-10] MEDS: PANTOPRAZOLE 40 MG/10 ML VIAL IVP SCH (08:58)
[2018-03-10] MEDS: LACTATED RINGERS 1,000 ML IV SCH ×3 (08:58→22:02)
[2018-03-10] MEDS: ALVIMOPAN 12 MG CAPSULE PO SCH ×2 (08:58→22:01)
--- NOTE | 2018-03-10 11:21 | P.PN ---
Subjective Progress Note Date: 03/10/18 Principal diagnosis: Diverticulitis Patient doing well today. Pain is well-controlled. No leg numbness. No labs from today. Denies nausea vomiting. Tolerating clears. Objective - Vital Signs Vital signs: Vital Signs Temp 97.6 F 03/10/18 07:00 Pulse 56 L 03/10/18 07:00 Resp 10 L 03/10/18 07:30 BP 110/71 03/10/18 07:00 Pulse Ox 98 03/10/18 07:00 Intake & Output 03/09/18 03/10/18 03/10/18 18:59 06:59 18:59 Intake Total 2800 2820 Output Total 100 1100 Balance 2700 1720 Weight 113.398 kg Intake: IV 2800 Intake, IV Titration 1500 Amount Lactated Ringers 1,000 ml 1500 @ 125 mls/hr IV .Q8H [facility] Rx#:[id number] Oral 1320 Output: Urine 100 1100 Other: Voiding Method Indwelling Catheter Indwelling Catheter Indwelling Catheter - Exam Abdomen: Soft, nondistended, incision with mild strikethrough, nontender - Labs CBC & Chem 7: 03/09/18 19:55 03/09/18 19:55 Labs: Abnormal Lab Results - Last 24 Hours (Table) 03/09/18 03/09/18 Range/Units 19:55 19:55 WBC 11.8 H (3.8-10.6) k/uL Neutrophils # 11.1 H (1.3-7.7) k/uL Lymphocytes # 0.4 L (1.0-4.8) k/uL Sodium 133 L (137-145) mmol/L Chloride 96 L (98-107) mmol/L Glucose 191 H (74-99) mg/dL Assessment and Plan (1) Diverticulitis Narrative/Plan: Continue clear liquids. Ambulate. Continue epidural for now. Recheck labs tomorrow. Current Visit: No Status: Acute Code(s): K57.92 - DVTRCLI OF INTEST, PART UNSP, W/O PERF OR ABSCESS W/O BLEED SNOMED Code(s): 767158894
--- NOTE | 2018-03-10 12:22 | P.PN ---
Progress Note - Text Anesthesia POD 1. Status Post low anterior resection under general endotracheal anesthesia with an epidrual catheter placed at approximately T10 for post surgical pain releif. VAS (0, 3) with Ropivicaine 0.12 % and Dilaudid 20 mcg / cc running at 7 cc / hr. Lower extremity strength (for/4). Minimal sedation. Site looks OK.
--- NOTE | 2018-03-10 14:05 | PN ---
PROGRESS NOTE DATE OF SERVICE: 03/10/2018 This 52-year-old gentleman admitted after low anterior resection, improved significantly. No chest pain. No palpitations. No fever. EXAM: Alert and oriented times three. Pulse 56, blood pressure 110/71, respiration 20, temperature 97.3, pulse ox 98% on 2 L. HEENT: Conjunctivae normal. Neck is no jugular venous distention. Cardiac: S1, S2. RESPIRATORY: Breath sounds diminished in the bases. No rhonchi. No crackles. Abdomen soft, status post surgery. Legs are no edema, no swelling. LABS: WBC 7.2, sodium 133. ASSESSMENT: 1. Status post low anterior resection, partial omentectomy for diverticulitis with chronic inflamed sigmoid colon. 2. Hypertension. 3. Mild hyponatremia. 4. History of gastroesophageal reflux disease. 5. History of hernia repair. 6. History of nicotine dependence. RECOMMENDATIONS AND DISCUSSION: Recommend to continue current medications, continue current management and symptomatic treatment. Otherwise, at this time, I would continue with current medications. Closely follow. Follow with surgery and resume the home medications. DVT prophylaxis. Further recommendations to follow. MMODL / IJN: [id number] /
[2018-03-10] MEDS: ROPIVACAINE 300 MG, HYDROMORPHONE (PF) 5 MG in SODIUM CHLORIDE 0.9% 190 ML EPIDURAL PRN (18:08)
[2018-03-10] MEDS: ESCITALOPRAM 10 MG TAB PO SCH (22:02)
[2018-03-11] MEDS: HEPARIN SODIUM,PORCINE 5,000 UNIT/ML 1 ML VIAL SQ SCH ×3 (01:11→17:01)
[2018-03-11] MEDS: LACTATED RINGERS 1,000 ML IV SCH ×2 (07:20→13:21)
[2018-03-11] MEDS: FAMOTIDINE 20 MG/2 ML VIAL IV SCH ×2 (09:13→21:10)
[2018-03-11] MEDS: ALVIMOPAN 12 MG CAPSULE PO SCH ×2 (09:13→21:10)
[2018-03-11] MEDS: HYDROCHLOROTHIAZIDE 12.5 MG CAP PO SCH (09:13)
[2018-03-11] MEDS: PANTOPRAZOLE 40 MG/10 ML VIAL IVP SCH (09:14)
[2018-03-11] MEDS: LOSARTAN 50 MG TAB PO SCH (09:14)
--- NOTE | 2018-03-11 11:01 | P.PN ---
Subjective Progress Note Date: 03/11/18 Principal diagnosis: Diverticulitis Patient doing well today. Ambulating. Positive gas and had a small bowel home. Tolerating liquid diet. Minimal pain. Objective - Vital Signs Vital signs: Vital Signs Temp 98.1 F 03/11/18 07:23 Pulse 55 L 03/11/18 07:23 Resp 10 L 03/11/18 07:23 BP 146/91 03/11/18 07:23 Pulse Ox 99 03/11/18 07:23 Intake & Output 03/10/18 03/11/18 03/11/18 18:59 06:59 18:59 Intake Total 1375 2200 Output Total 3700 1200 1200 Balance -2325 1000 -1200 Intake: Intake, IV Titration 1375 1000 Amount Lactated Ringers 1,000 ml 1375 1000 @ 125 mls/hr IV .Q8H [facility] Rx#:[id number] Oral 1200 Output: Urine 3700 1200 1200 Uretheral (Deras) 2000 Other: Voiding Method Indwelling Catheter Urinal - Exam Abdomen: Soft, nondistended, nontender, incision clean and dry - Labs CBC & Chem 7: 03/09/18 19:55 03/09/18 19:55 Assessment and Plan (1) Diverticulitis Narrative/Plan: Increase diet. Ambulate. Remove epidural and Deras catheter tomorrow. Current Visit: No Status: Acute Code(s): K57.92 - DVTRCLI OF INTEST, PART UNSP, W/O PERF OR ABSCESS W/O BLEED SNOMED Code(s): 693895701
[2018-03-11 11:41] LABS: Basophils % (A) 0 %; Eosinophils # (A) 0.2 k/uL (0-0.7); Eosinophils % (A) 3 %; HCT 37.5 % (39.0-53.0); HGB 12.7 gm/dL (13.0-17.5); Lymphocytes # (A) 1.4 k/uL (1.0-4.8); Lymphocytes % (A) 23 %; MCH 29.8 pg (25.0-35.0); MCV 87.6 fL (80.0-100.0); Mean Platelet Volume 6.9; Monocytes # (A) 0.6 k/uL (0-1.0); Monocytes % (A) 10 %; Neutrophils # (A) 3.8 k/uL (1.3-7.7); Neutrophils % (A) 61 %; Platelet Count 194 k/uL (150-450); RBC 4.28 m/uL (4.30-5.90); RDW 12.5 % (11.5-15.5); WBC 6.1 k/uL (3.8-10.6)
[2018-03-11 12:00] LABS: Anion Gap 4 mmol/L; Blood Urea Nitrogen 10 mg/dL (9-20); Calcium 8.3 mg/dL (8.4-10.2); Carbon Dioxide 30 mmol/L (22-30); Chloride 100 mmol/L (98-107); Glucose 80 mg/dL (74-99); Potassium 3.7 mmol/L (3.5-5.1); Sodium 134 mmol/L (137-145)
--- NOTE | 2018-03-11 12:26 | P.PN ---
Progress Note - Text Anesthesia POD 2. Status Post low anterior resection under general endotracheal anesthesia with an epidrual catheter placed at T10 for post surgical pain releif. VAS (0, 3) with Ropivicaine 0.12 % and Dilaudid 20 mcg / cc running at 7 cc / hr. Lower extremity strength (4/4). Minimal sedation. Site looks OK.
[2018-03-11 14:28] VITALS: RESP 16
[2018-03-11] MEDS ORDERED: HYDROmorphone 1 MG/ML 1 ML SYRINGE IVP PRN (16:16)
--- NOTE | 2018-03-11 16:27 | PN ---
PROGRESS NOTE DATE OF SERVICE: 03/11/2018 This 52-year-old gentleman admitted after low anterior resection improving significantly. No chest pain. No palpitations. No fever. PHYSICAL EXAM: Alert and oriented x3. Pulse 55, blood pressure 149/80, respiration 17, temperature 98.1, pulse ox 99% on room air. HEENT: Oral mucosa moist. NECK: No jugular venous distention. No carotid bruit. No lymph node enlargement. CARDIOVASCULAR: S1, S2 muffled. RESPIRATORY: Breath sounds diminished in the bases. No rhonchi, no crackles. ABDOMEN: Soft, status post surgery. LEGS: No edema. No swelling. NERVOUS SYSTEM: No focal deficits. LABS: WBC 6.2, hemoglobin 12.7, sodium is 134. ASSESSMENT: 1. Status post low anterior resection and partial omentectomy for diverticulitis. 2. Hypertension. 3. Mild hyponatremia. 4. History of gastroesophageal reflux disease. 5. History of hernia repair. 6. History of nicotine dependence. RECOMMENDATION AND DISCUSSION: Continue current management and symptomatic treatment. Otherwise at this time, incentive spirometry. Resume the home medications. Diet per Surgery. Further recommendations to follow. MMODL / IJN: [id number] /
[2018-03-11] MEDS ORDERED: KETOROLAC 30 MG/ML 1 ML VIAL IVP PRN (16:59)
[2018-03-11] MEDS: HYDROcodone/APAP 5-325MG 1 EACH TAB PO PRN ×2 (17:01→21:09)
[2018-03-11] MEDS ORDERED: KETOROLAC 30 MG/ML 1 ML VIAL IVP SCH (18:00)
[2018-03-11] MEDS: ESCITALOPRAM 10 MG TAB PO SCH (21:10)
[2018-03-12] MEDS: HEPARIN SODIUM,PORCINE 5,000 UNIT/ML 1 ML VIAL SQ SCH ×2 (01:23→06:59)
[2018-03-12] MEDS: HYDROcodone/APAP 5-325MG 1 EACH TAB PO PRN ×2 (06:58→15:26)
[2018-03-12] MEDS: LACTATED RINGERS 1,000 ML IV SCH (07:45)
[2018-03-12] MEDS: HYDROCHLOROTHIAZIDE 12.5 MG CAP PO SCH (08:52)
[2018-03-12] MEDS: LOSARTAN 50 MG TAB PO SCH (08:52)
[2018-03-12] MEDS: ALVIMOPAN 12 MG CAPSULE PO SCH (08:52)
[2018-03-12] MEDS: FAMOTIDINE 20 MG/2 ML VIAL IV SCH (08:53)
[2018-03-12] MEDS: PANTOPRAZOLE 40 MG/10 ML VIAL IVP SCH (08:53)
--- NOTE | 2018-03-12 09:42 | P.PN ---
Progress Note - Text Anesthesia POD 3. Patient's epidural catheter was accidentally discontinued yesterday. Former epidural site is clean dry and without signs of infection.
--- NOTE | 2018-03-12 10:41 | P.PN ---
Subjective Progress Note Date: 03/12/18 52-year-old male seen on the unit sitting up in a chair states has been up ambulating in the hallway pain medication effective for pain control denies any nausea vomiting. States has a bowel movement this morning surgical incision sites dry abdomen soft white count 7.5 potassium 3.5 afebrile Patient is postop March 09 low anterior resection for diverticulitis with chronically inflamed sigmoid colon Objective - Vital Signs Vital signs: Vital Signs Temp 98.9 F 03/12/18 07:05 Pulse 55 L 03/12/18 07:05 Resp 16 03/12/18 07:05 BP 146/92 03/12/18 07:05 Pulse Ox 95 03/12/18 07:05 Intake & Output 03/11/18 03/12/18 03/12/18 18:59 06:59 18:59 Intake Total 1250 3250 Output Total 3500 900 Balance -2250 2350 Intake: Intake, IV Titration 1250 2000 Amount Lactated Ringers 1,000 ml 1250 2000 @ 125 mls/hr IV .Q8H [facility] Rx#:[id number] Oral 1250 Output: Urine 3500 900 Uretheral (Deras) 450 Other: Voiding Method Urinal # Voids 3 - Exam Physical exam Pleasant 52-year-old male sitting up in bed appears in no acute distress Lungs adequate air movement bilaterally on room air no shortness of breath Heart S1-S2 audible and regular denying chest pain Abdomen surgical dressing sites dry urinating no difficulty no nausea no vomiting tolerating diet nondistended nontender Extremities no edema noted - Labs CBC & Chem 7: 03/11/18 11:26 03/11/18 11:26 Labs: Abnormal Lab Results - Last 24 Hours (Table) 03/11/18 03/11/18 Range/Units 11:26 11:26 RBC 4.28 L (4.30-5.90) m/uL Hgb 12.7 L (13.0-17.5) gm/dL Hct 37.5 L (39.0-53.0) % Sodium 134 L (137-145) mmol/L Calcium 8.3 L (8.4-10.2) mg/dL Assessment and Plan Assessment: Impression Present on admission intractable abdominal pain left lower quadrant suspect due to acute diverticulitis Prior history of diverticulitis with intramural abscess Status post March 09 low anterior resection due to chronically inflamed sigmoid colon Electrolyte imbalance hypokalemia Chronic diverticulitis Plan Continue postop surgical care Increase activity Anticipate discharge Potassium replaced Pain control DVT and GI prophylaxis The above impression and plan of care have been discussed and directed by signing physician. Hui German nurse practitioner acting as scribe for signing physician.
--- NOTE | 2018-03-12 14:41 | P.DS ---
Providers Date of admission: 03/09/18 11:49 Expected date of discharge: 03/12/18 Attending physician: Pepe Ruiz Consults: 03/09/18 16:27 Consult Physician Routine Consulting Provider: Jacky Hughes Consult Reason/Comments: Medical management Do you want consulting provider notified?: Yes Primary care physician: Berry Rose [facility] Course: 52-year-old presented for low anterior resection. Patient presented with severe abdominal pain. Patient has a history of chronic diverticulitis .Patient is postop March 09 low anterior resection for diverticulitis with chronically inflamed sigmoid colon postop patient was ambulatory on the unit afebrile pain medication effective for pain control surgical incisions benign was felt to be appropriate to discharge Impression Present on admission intractable abdominal pain left lower quadrant suspect due to acute diverticulitis Prior history of diverticulitis with intramural abscess Status post March 09 low anterior resection due to chronically inflamed sigmoid colon Chronic diverticulitis The above impression and plan of care have been discussed and directed by signing physician. Hui German nurse practitioner acting as scribe for signing physician. Plan - Discharge Summary New Discharge Prescriptions: New HYDROcodone/APAP 5-325MG [[place] 5-325] 1 each PO Q4HR PRN #20 tab PRN Reason: Moderate Pain Continue Irbesartan/Hydrochlorothiazide [Irbesartan-Hctz 300-12.5 mg Tb] 1 tab PO DAILY Escitalopram [Lexapro] 10 mg PO HS tab Metoclopramide [Reglan] 10 mg PO TID PRN #15 tab PRN Reason: nausea/vomiting Ondansetron Odt [Zofran ODT] 4 mg PO Q8HR PRN #10 tab PRN Reason: nausea/vomiting Discontinued metroNIDAZOLE [Flagyl] 500 mg PO Q8HR #21 tab Ciprofloxacin HCl [Cipro] 500 mg PO Q12HR Discharge Medication List Irbesartan/Hydrochlorothiazide [Irbesartan-Hctz 300-12.5 mg Tb] 1 tab PO DAILY 02/10/17 [History] Escitalopram [Lexapro] 10 mg PO HS tab 01/28/18 [Rx] Metoclopramide [Reglan] 10 mg PO TID PRN #15 tab 03/07/18 [Rx] Ondansetron Odt [Zofran ODT] 4 mg PO Q8HR PRN #10 tab 03/07/18 [Rx] HYDROcodone/APAP 5-325MG [[place] 5-325] 1 each PO Q4HR PRN #20 tab 03/12/18 [Rx] Follow up Appointment(s)/Referral(s): Pepe Ruiz MD [STAFF PHYSICIAN] - 03/20/18 3:00 pm Activity/Diet/Wound Care/Special Instructions: No tub bath for six weeks. Low fiber diet Do not remove the plastic surgical dressings until seen in follow-up visit Shower daily. Do not soak surgical dressings No lifting over 10 pounds for the next 6 weeks. May use ice packs to surgical site. No driving while taking narcotic for pain. Discharge Disposition: HOME SELF-CARE
[2018-03-12 14:51] VITALS: BP 131/86; PULSE 70; TEMP 98
--- NOTE | 2018-03-12 15:04 | PN ---
PROGRESS NOTE DATE OF SERVICE: 03/12/2018. INTERVAL HISTORY: This 52-year-old gentleman who was admitted after low anterior resection and partial omentectomy is improving significantly. No chest pain. No palpitations. No fever. PHYSICAL EXAM: Alert and oriented x3. Pulse 55, blood pressure 140/92, respirations 18, temperature 98.9, pulse ox 97% on room air. HEENT: Conjunctivae normal. Neck: No jugular venous distention. CARDIOVASCULAR: S1, S2. RESPIRATORY: Breath sounds diminished in the bases. A few scattered rhonchi. No crackles. LEGS: No edema and no swelling. CENTRAL NERVOUS SYSTEM: Higher functions as mentioned earlier. Moves all four extremities. Lymphatics: No lymph nodes palpable in the neck, axillae or groin. ABDOMEN: Soft, status post surgery. LAB STUDIES: WBC 6.9, hemoglobin 12.7. ASSESSMENT: 1. Status post low anterior resection and partial omentectomy for diverticulitis. 2. Hypertension. 3. Mild hyponatremia. 4. History of gastroesophageal reflux disease. 5. History of hernia repair. 6. History of nicotine dependence. RECOMMENDATIONS AND DISCUSSION: Recommend to continue current medications, management and symptomatic treatment. Otherwise, at this time, I recommend continue with current medications. Continue to follow with surgery. Further recommendations the patient follow. See orders for further details. MMODL / IJN: [id number] /
== END 2018-03-12 15:40 | disposition home or self-care (01) | DRG 330 ==
LOC: 2ORMAIN 11:49 → 3SUR 16:17 → EDSTATUS 03-20 08:00
PROVIDERS: ADMIT Surgery; ATTEND Surgery
PROC: 0DBU0ZZ Excision of Omentum, Open Approach (ICD-10-PCS; 2018-03-09)
PROC: 0DTN0ZZ Resection of Sigmoid Colon, Open Approach (ICD-10-PCS; principal; 2018-03-09 07:30)
DX: K57.32 Diverticulitis of large intestine without perforation or abscess without bleeding (principal); E87.1 Hypo-osmolality and hyponatremia; E87.6 Hypokalemia; F17.210 Nicotine dependence, cigarettes, uncomplicated; I10 Essential (primary) hypertension; K21.9 Gastro-esophageal reflux disease without esophagitis; M19.90 Unspecified osteoarthritis, unspecified site; Z79.899 Other long term (current) drug therapy; Z80.1 Family history of malignant neoplasm of trachea, bronchus and lung
CPT/HCPCS: 80048; 85025; 86850; 86900; 86901; 88307

== ENCOUNTER 2018-07-02 07:58 | Day surgery (SDC) | payer BC, MEDICAID ==
[2018-06-27 16:02] VITALS: BMI 35.4
[~2018-07-02 07:58] MED LIST changes: -HEPARIN SODIUM,PORCINE 5,000 UNIT/ML 1 ML VIAL SQ ONE; +LACTATED RINGERS 1,000 ML IV SCH; -Pre Op ABX Message 1 EACH MISC MISCELLANE ONE; -metroNIDAZOLE-NS PMX 500 MG in SALINE 1 100ML.BAG IVPB ONE
[2018-07-02 08:16] VITALS: TEMP 97.8
[2018-07-02] MEDS ORDERED: LIDOCAINE 1% 20 ML VIAL (10MG/ML) FOR IV START INTRADERMA ONE (08:21)
[2018-07-02] MEDS ORDERED: PROPOFOL 10 MG/ML 20 ML VIAL IV ONE (09:14)
--- NOTE | 2018-07-02 09:16 | P.GSHP ---
History of Present Illness H&P Date: 07/02/18 Chief Complaint: History of diverticulitis, screening colonoscopy This a 53-year-old male who presents today for colonoscopy patient's. History of perforated diverticulitis. He's never had a colonoscopy before. Past Medical History Past Medical History: Hypertension Additional Past Medical History / Comment(s): diverticulitis History of Any Multi-Drug Resistant Organisms: None Reported Past Surgical History: Bowel Resection, Hernia Repair, Orthopedic Surgery, Tonsillectomy Additional Past Surgical History / Comment(s): left hand sx to reattached 2nd, 3rd and 4th digits d/t work related injury-has full function of hand, lt ing hernia repair, lt er drum replaced, egd/colonoscopy Past Anesthesia/Blood Transfusion Reactions: No Reported Reaction Smoking Status: Current some day smoker - Past Family History Mother Family Medical History: Cancer Additional Family Medical History / Comment(s): lung cancer- hx smoking Father Family Medical History: Cancer Additional Family Medical History / Comment(s): had tb while in [place]-had scar tissue. from lung cancer Medications and Allergies Home Medications Medication Instructions Recorded Confirmed Type Irbesartan/Hydrochlorothiazide 1 tab PO DAILY 02/10/17 06/27/18 History [Irbesartan-Hctz 300-12.5 mg Tb] Escitalopram [Lexapro] 10 mg PO HS tab 01/28/18 06/27/18 Rx Allergies Allergy/AdvReac Type Severity Reaction Status Date / Time No Known Allergies Allergy Verified 07/02/18 08:12 Surgical - Exam Vital Signs Temp Pulse Resp BP Pulse Ox 97.8 F 70 16 141/83 94 L 07/02/18 08:14 07/02/18 08:14 07/02/18 08:14 07/02/18 08:14 07/02/18 08:14 - General well developed, no distress - Eyes PERRL - ENT normal pinna - Neck no masses - Respiratory normal expansion - Cardiovascular Rhythm: regular - Abdomen Abdomen: soft, non tender Assessment and Plan Assessment: History of perforated diverticula is. We'll perform colonoscopy.
--- NOTE | 2018-07-02 09:32 | P.OP ---
Date of Procedure: 07/02/18 Preoperative Diagnosis: History of perforated diverticulitis Postoperative Diagnosis: Minimal diverticular changes Procedure(s) Performed: Colonoscopy Anesthesia: MAC Surgeon: Pepe Ruiz Pathology: none sent Condition: stable Disposition: PACU Description of Procedure: The patient's placed on the endoscopy table in the lateral position. He received IV sedation. Digital rectal exam was performed which revealed no abnormalities. The flexible colonoscope was then placed patient anus and passed throughout the entire colon. The ileocecal valve was visualized. The cecum, ascending and transverse colon appeared normal. In the descending colon was a few scattered diverticula. The patient a previous low anterior section. The colorectal anastomosis visualized. This was normal. Scope was then brought back the rectum this appeared normal. Scope was withdrawn for patient.
[2018-07-02 09:41] VITALS: RESP 14
[2018-07-02 10:05] VITALS: BP 125/84; PULSE 72
== END 2018-07-02 10:02 | disposition home or self-care (01) ==
LOC: ORWHC2ENDO 07:58
PROVIDERS: ATTEND Surgery
DX: K57.30 Diverticulosis of large intestine without perforation or abscess without bleeding (principal); I10 Essential (primary) hypertension; F32.9 Major depressive disorder, single episode, unspecified; F17.200 Nicotine dependence, unspecified, uncomplicated; Z98.0 Intestinal bypass and anastomosis status; Z79.899 Other long term (current) drug therapy
CPT/HCPCS: 45378; J2704

== ENCOUNTER 2019-04-13 14:10 | Emergency (ER) | payer BC, MEDICAID ==
[2019-04-13 14:15] VITALS: BP 118/74; PULSE 79; RESP 16; TEMP 98
[2019-04-13] MEDS ORDERED: LIDOCAINE 1% INJ 10MG/ML (20 ML MDV) SQ ONE (14:43)
[2019-04-13] MEDS ORDERED: SODIUM CHLORIDE 0.9% IRRIG 1,000 ML BTL IRRIGATION ONE (14:48)
--- NOTE | 2019-04-13 15:13 | ED ---
General Adult HPI - General Chief complaint: Wound/Laceration Stated complaint: Finger Lac Time Seen by Provider: 04/13/19 14:16 Source: patient Mode of arrival: ambulatory Limitations: no limitations - History of Present Illness Initial comments: Patient is a 53-year-old male presenting to emergency Department with a chief complaint of a cut on his finger. Patient reports he was working on his car when he accidentally lacerated his finger. Patient reports the incident occurred 1 hour ago and the laceration is located on the distal and of the palm ar aspect of the left second digit. Patient denies any numbness or tingling. Patient denies active bleeding patient is not on blood thinners. Patient reports the pain is a 3 and throbbing. Patient is unaware of his tetanus status. Patient denies taking medication to alleviate the symptoms. - Related Data Home Medications Medication Instructions Recorded Confirmed Irbesartan/Hydrochlorothiazide 1 tab PO DAILY 02/10/17 06/27/18 [Irbesartan-Hctz 300-12.5 mg Tb] Previous Rx's Medication Instructions Recorded Escitalopram [Lexapro] 10 mg PO HS tab 01/28/18 Allergies Allergy/AdvReac Type Severity Reaction Status Date / Time No Known Allergies Allergy Verified 04/13/19 14:15 Review of Systems ROS Statement: Those systems with pertinent positive or pertinent negative responses have been documented in the HPI. ROS Other: All systems not noted in ROS Statement are negative. Past Medical History Past Medical History: Hypertension Additional Past Medical History / Comment(s): diverticulitis History of Any Multi-Drug Resistant Organisms: None Reported Past Surgical History: Bowel Resection, Hernia Repair, Orthopedic Surgery, Tonsillectomy Additional Past Surgical History / Comment(s): left hand sx to reattached 2nd, 3rd and 4th digits d/t work related injury-has full function of hand, lt ing hernia repair, lt er drum replaced, egd/colonoscopy Past Anesthesia/Blood Transfusion Reactions: No Reported Reaction Past Psychological History: No Psychological Hx Reported Smoking Status: Current some day smoker - Past Family History Mother Family Medical History: Cancer Additional Family Medical History / Comment(s): lung cancer- hx smoking Father Family Medical History: Cancer Additional Family Medical History / Comment(s): had tb while in [place]-had scar tissue. from lung cancer General Exam Limitations: no limitations General appearance: alert, in no apparent distress Head exam: Present: atraumatic, normocephalic, normal inspection Eye exam: Present: normal appearance, PERRL, EOMI Pupils: Present: normal accommodation ENT exam: Present: normal exam, mucous membranes moist, normal external ear exam Neck exam: Present: normal inspection, full ROM Respiratory exam: Present: normal lung sounds bilaterally Cardiovascular Exam: Present: regular rate, normal rhythm, normal heart sounds Extremities exam: Present: full ROM. Absent: normal inspection (Laceration on the distal end on the palmar aspect of the left second digit. No active bleeding. No edema or erythema.) Back exam: Present: normal inspection, full ROM Neurological exam: Present: alert, oriented X3 Psychiatric exam: Present: normal affect, normal mood Skin exam: Present: warm, intact, normal color Course Vital Signs 04/13/19 04/13/19 14:13 15:30 Temperature 98 F 98 F Pulse Rate 79 79 Respiratory 16 16 Rate Blood Pressure 118/74 118/74 O2 Sat by Pulse 97 97 Oximetry Procedures - Laceration Laceration #1 Consent Obtained: verbal consent Indication: laceration Site: hand Size (cm): 1 Description: linear Depth: simple, single layer Sedation/Analgesia: none Anesthetic Used: lidocaine 1% Anesthesia Technique: local infiltration Amount (mls): 5 Pre-repair: irrigated extensively Type of Sutures: nylon Size of Sutures: 4-0 Number of Sutures: 3 Technique: simple, interrupted Patient Tolerated Procedure: well Medical Decision Making - Medical Decision Making Patient is 53-year-old male presenting to emergency Department with a chief complaint of a cut on my finger. Patient was given tetanus prophylaxis. Patient's laceration was repaired with 3 sutures. Patient tolerated procedure well. Patient vised to return to emergency Department in 14 days for suture removal. Strict return parameters were thoroughly discussed the patient was understanding and agreeable. Case discussed with physician. Patient advised to follow proper wound care structures. Disposition Clinical Impression: Laceration Disposition: HOME SELF-CARE Condition: Stable Instructions (If sedation given, give patient instructions): Care For Your Stitches (DC), Laceration (DC) Additional Instructions: Please return to emergency department 10-14 days for suture removal or sooner if symptoms worsen. Is patient prescribed a controlled substance at d/c from ED?: No Referrals: Berry Herrera MD [Primary Care Provider] - 1-2 days Time of Disposition: 15:13
== END 2019-04-13 15:25 | disposition home or self-care (01) ==
LOC: EC 14:10
DX: S61.211A Laceration without foreign body of left index finger without damage to nail, initial encounter (principal); I10 Essential (primary) hypertension; F17.200 Nicotine dependence, unspecified, uncomplicated; Z79.899 Other long term (current) drug therapy; W26.9XXA Contact with unspecified sharp object(s), initial encounter
CPT/HCPCS: 99282; 12001; J2001

== ENCOUNTER → 2020-02-13 | Outpatient (CLI) | payer BC, MEDICAID ==
[2020-02-13 10:53] LABS: Basophils # (A) 0.1 k/uL (0-0.2); Basophils % (A) 1 %; Eosinophils # (A) 0.1 k/uL (0-0.7); Eosinophils % (A) 2 %; HCT 50.6 % (39.0-53.0); HGB 17.1 gm/dL (13.0-17.5); Lymphocytes # (A) 1.6 k/uL (1.0-4.8); Lymphocytes % (A) 24 %; MCH 30.2 pg (25.0-35.0); MCHC 33.7 g/dL (31.0-37.0); MCV 89.5 fL (80.0-100.0); Mean Platelet Volume 7.4; Monocytes # (A) 0.5 k/uL (0-1.0); Monocytes % (A) 8 %; Neutrophils # (A) 4.1 k/uL (1.3-7.7); Neutrophils % (A) 63 %; Platelet Count 240 k/uL (150-450); RBC 5.65 m/uL (4.30-5.90); RDW 13.1 % (11.5-15.5); WBC 6.6 k/uL (3.8-10.6)
== END | disposition home or self-care (01) ==
LOC: LABPAT 08:42
PROVIDERS: ATTEND Surgery
DX: Z01.818 Encounter for other preprocedural examination (principal); K43.0 Incisional hernia with obstruction, without gangrene
CPT/HCPCS: 36415; 84132; 85025; 93005

== ENCOUNTER 2020-02-19 06:03 | Day surgery (SDC) | payer BC, MEDICAID ==
[2020-02-13 13:33] VITALS: BMI 36.9
[~2020-02-19 06:03] MED LIST changes: +ACETAMINOPHEN TAB 500 MG TAB PO ONE; +DEXAMETHASONE SOD PHOSPHATE 10 MG/ML 1 ML VIAL IV ONE; +HEPARIN SODIUM,PORCINE 5,000 UNIT/ML 1 ML VIAL SQ ONE; +HYDROmorphone 0.5 MG/0.5 ML SYRINGE IVP PRN; +LIDOCAINE 1% (10MG/ML) FOR IV START INTRADERMA PRN; +MIDAZOLAM 2 MG/2 ML VIAL IV PRN; +ONDANSETRON 4 MG/2 ML VIAL IVP ONE; +fentaNYL (PF) 50 MCG/ML 2 ML AMP IVP PRN
[2020-02-19] MEDS ORDERED: ACETAMINOPHEN TAB 500 MG TAB ONE (06:19)
[2020-02-19] MEDS ORDERED: ONDANSETRON 4 MG/2 ML VIAL ONE (06:19)
[2020-02-19] MEDS ORDERED: HEPARIN SODIUM,PORCINE 5,000 UNIT/ML 1 ML VIAL ONE (06:20)
[2020-02-19 06:36] LABS: Glucose,Whole Blood 98 mg/dL (75-99)
[2020-02-19] MEDS ORDERED: LACTATED RINGERS 1,000 ML IV ONE ×3 (06:37→13:00)
[2020-02-19] MEDS ORDERED: DEXAMETHASONE SOD PHOSPHATE 10 MG/ML 1 ML VIAL IV ONE (06:38)
[2020-02-19] MEDS ORDERED: MIDAZOLAM 2 MG/2 ML VIAL IVP ONE (06:50)
[2020-02-19] MEDS ORDERED: ROCURONIUM BROMIDE 10 MG/ML 5 ML VIAL IV ONE (07:45)
[2020-02-19] MEDS ORDERED: MIDAZOLAM 2 MG/2 ML VIAL ONE (07:45)
[2020-02-19] MEDS ORDERED: ePHEDrine SULFATE/0.9% NACL/PF 50 MG/5 ML SYRINGE IV ONE (07:45)
[2020-02-19] MEDS ORDERED: HYDROmorphone (PF) 1 MG/ML ONE (07:45)
[2020-02-19] MEDS ORDERED: SUCCINYLCHOLINE CHLORIDE 100 MG/5 ML SYR IV ONE (07:45)
[2020-02-19] MEDS ORDERED: GLYCOPYRROLATE 0.2 MG/ML 2 ML VIAL ONE (07:45)
[2020-02-19] MEDS ORDERED: LIDOCAINE 1% INJ 10MG/ML (20 ML MDV) ONE (07:45)
[2020-02-19] MEDS ORDERED: KETOROLAC 30 MG/ML 1 ML VIAL ONE (07:45)
[2020-02-19] MEDS ORDERED: ROPIVACAINE 5 MG/ML 30 ML VIAL ONE (07:45)
[2020-02-19] MEDS ORDERED: fentaNYL (PF) 50 MCG/ML 2 ML AMP ONE (07:45)
[2020-02-19] MEDS ORDERED: PROPOFOL 10 MG/ML 20 ML VIAL IV ONE (07:45)
[2020-02-19] MEDS ORDERED: NEOSTIGMINE 1 MG/ML 10 ML VIAL ONE (07:45)
[2020-02-19] MEDS ORDERED: KETAMINE 10 MG/ML 20 ML VIAL ONE (07:45)
[2020-02-19] MEDS ORDERED: BUPIVACAIN-EPI 0.25%-1:200,000 30 ML VIAL SQ ONE (08:10)
--- NOTE | 2020-02-19 08:41 | P.ANPRN ---
Procedure Note - Anesthesia - Nerve Block Performed Bilateral Rectus Abdominis Time Out Performed: Yes (06:50) Date of Procedure: 02/19/20 Procedure Start Time: 06:51 Procedure Stop Time: 07:03 Location of Patient: PreOp Indication: Acute Post-Operative Pain, Requested by Surgeon (Joseph) Sedation Type: Sedate with meaningful contact maintained Preparation: Sterile Prep Position: Supine Catheter: None Needle Types: Pajunk Needle Gauge: 21 Ultrasound used to visualize needle placement: Yes Ultrasound used to observe medication spread: Yes Injectate: 0.5% Ropivacaine (see comment for volume) (0.5% Ropivacaine 15cc each side. Decadron 4mg) Blood Aspirated: No Pain Paresthesia on Injection Noted: No Resistance on Injection: Normal Image Stored and Saved: Yes Events: Uneventful and Well Tolerated
--- NOTE | 2020-02-19 09:34 | P.OP ---
Date of Procedure: 02/19/20 Preoperative Diagnosis: Incisional hernia Postoperative Diagnosis: Incarcerated incisional hernia Procedure(s) Performed: Laparoscopic robotic repair of incarcerated hernia Anesthesia: JANUSZ Surgeon: Pepe Ruiz Estimated Blood Loss (ml): 10 Pathology: other (Omentum) Condition: stable Disposition: PACU Description of Procedure: The patient was placed on the operating table in the supine position. He received general anesthesia. His abdomen was prepped and draped usual fashion. Using a 5 mm optical trocar under direct visualization the peritoneal cavity was entered in the left upper quadrant. The abdomen was then insufflated. The laparoscope was placed back into the perineal cavity. Next a 8 mm robotic trocar was placed in the left lower quadrant and a 12 mm robotic trocar was placed in the left lateral position. The original 5 mm trocar was exchanged for a 8 mm robotic trocar. The patient's placed in the left side up position. And the patient was docked to the robot. The incisional hernia was visualized. Using hook cautery the peritoneum over t he incisional hernia was excised. The incarcerated omentum was dissected free and sent to pathology. The fascial opening was repaired using 0V LOC suture. Next a piece of 14 cm oval ventral light ST mesh was placed into the. Cavity and secured with 2 OV lock suture. The patient was undocked the robot. The needles were retrieved. The fascia of the 12 mm trocar site was closed with 0 Ethibond suture. Skin was closed interrupted 3-0 Monocryl suture. Dermabond dressings was applied. Patient tolerated procedure well and was sent to recovery room stable condition.
--- NOTE | 2020-02-19 09:34 | P.GSHP ---
History of Present Illness H&P Date: 02/19/20 Chief Complaint: Incisional hernia This a 54-year-old male who presents today for laparoscopic robotic-assisted repair of incisional hernia. Patient has had previous sigmoid clipped. He has developed an incisional hernia as low midline incision. Past Medical History Past Medical History: Cancer, Diabetes Mellitus, Hypertension Additional Past Medical History / Comment(s): hx diverticulitis, back pain, skin cancer., incisional hernia. History of Any Multi-Drug Resistant Organisms: None Reported Past Surgical History: Bowel Resection, Hernia Repair, Orthopedic Surgery, Tonsillectomy Additional Past Surgical History / Comment(s): left hand sx to reattached 2nd, 3rd and 4th digits d/t work related injury-has full function of hand, lt ing hernia repair, lt er drum replaced, egd/colonoscopy Past Anesthesia/Blood Transfusion Reactions: No Reported Reaction Past Psychological History: No Psychological Hx Reported Additional Psychological History / Comment(s): . Smoking Status: Current some day smoker Past Alcohol Use History: Occasional Additional Past Alcohol Use History / Comment(s): started smoking cigars at age 29- smokes occ Past Drug Use History: None Reported - Past Family History Mother Family Medical History: Cancer Additional Family Medical History / Comment(s): lung cancer- hx smoking Father Family Medical History: Cancer Additional Family Medical History / Comment(s): had tb while in [place]-had scar tissue. from lung cancer Medications and Allergies Home Medications Medication Instructions Recorded Confirmed Type Irbesartan/Hydrochlorothiazide 1 tab PO DAILY 02/10/17 02/19/20 History [Irbesartan-Hctz 300-12.5 mg Tb] Escitalopram [Lexapro] 10 mg PO HS tab 01/28/18 02/13/20 Rx metFORMIN HCL [Glucophage] 500 mg PO BID 02/13/20 02/13/20 History Allergies Allergy/AdvReac Type Severity Reaction Status Date / Time No Known Allergies Allergy Verified 02/13/20 13:07 Surgical - Exam Vital Signs Temp Pulse Resp BP Pulse Ox 96.7 F L 66 17 132/83 99 02/19/20 06:23 02/19/20 06:23 02/19/20 06:23 02/19/20 06:23 02/19/20 06:23 - General well developed, well nourished, no distress - Eyes PERRL - ENT normal pinna - Neck no masses - Respiratory normal expansion - Cardiovascular Rhythm: regular - Abdomen Abdomen: soft, non tender Hernia: incisional (4 cm incisional hernia) Assessment and Plan Assessment: Incisional hernia. We'll perform laparoscopic robotic-assisted repair.
[2020-02-19 10:28] LABS: Glucose,Whole Blood 159 mg/dL (75-99)
[2020-02-19] MEDS ORDERED: HYDROcodone/APAP 5-325MG 1 EACH TAB PO ONE (11:00)
[2020-02-19] MEDS ORDERED: HYDROcodone/APAP 5-325MG 1 EACH TAB ONE (11:00)
[2020-02-19] MEDS ORDERED: TAMSULOSIN 0.4 MG CAP.ER.24H PO ONE (12:45)
[2020-02-21 06:11] VITALS: BP 115/74; PULSE 80; RESP 16; TEMP 96.8
== END 2020-02-19 15:05 | disposition home or self-care (01) ==
LOC: OR 06:03
PROVIDERS: ATTEND Surgery
DX: K43.0 Incisional hernia with obstruction, without gangrene (principal); I10 Essential (primary) hypertension; E11.9 Type 2 diabetes mellitus without complications; F17.210 Nicotine dependence, cigarettes, uncomplicated; Z79.84 Long term (current) use of oral hypoglycemic drugs; Z79.899 Other long term (current) drug therapy; Z85.828 Personal history of other malignant neoplasm of skin; Z90.49 Acquired absence of other specified parts of digestive tract; Z98.890 Other specified postprocedural states; Z90.89 Acquired absence of other organs; Z87.19 Personal history of other diseases of the digestive system; Z80.1 Family history of malignant neoplasm of trachea, bronchus and lung; Z81.2 Family history of tobacco abuse and dependence
CPT/HCPCS: 49655; 64486; 88305; C1781; J2250; J1644; J1100; J2710; J0690; J2405; J2001; J3010; J1885; J1170; J2795; J0330; J2704

== ENCOUNTER → 2022-07-28 | Outpatient (CLI) | payer BC, MEDICAID ==
--- NOTE | 2022-07-28 10:50 | US ---
EXAMINATION TYPE: US venous doppler duplex LE RT DATE OF EXAM: 07/28/2022 10:32 AM COMPARISON: NONE CLINICAL HISTORY: M79.604 PAIN IN RIGHT LEG. Pain in right leg behind the knee. Patient does not take blood thinners. No hx of DVT. SIDE PERFORMED: Right TECHNIQUE: The lower extremity deep venous system is examined utilizing real time linear array sonog gavi with graded compression, doppler sonography and color-flow sonography. VESSELS IMAGED: Common Femoral Vein Deep Femoral Vein Greater Saphenous Vein * Femoral Vein Popliteal Vein Small Saphenous Vein * Proximal Calf Veins (* superficial vessels) Right Leg: No evidence of DVT in veins imaged at this time. IMPRESSION: 1. Right lower extremity ultrasound negative for deep venous thrombosis.
== END | disposition home or self-care (01) ==
LOC: RADUSWWP 10:10
PROVIDERS: ATTEND Family Medicine
DX: M79.604 Pain in right leg (principal)

== ENCOUNTER → 2023-06-01 | Outpatient (CLI) | payer BC, MEDICAID ==
--- NOTE | 2023-06-01 15:21 | P.SLEEP ---
History of Present Illness DATE: 06/01/2023 CONSULTATION/NEW PATIENT EVALUATION HISTORY OF PRESENT ILLNESS/SLEEP-WAKE EVALUATION: 58 year old gentleman had been evaluated in the sleep center for possible obstructive sleep apnea hypopnea syndrome. Patient had home sleep apnea test 5 years ago, which was not conclusive. SLEEP SCHEDULE: Usually sleep schedule an p.m. to 5:30 AM on weekdays and from 9 PM to 6:30 AM on weekend. FALLING ASLEEP: No problems with falling asleep. DURING SLEEP: Patient usually sleeps on the side position with snoring and epi sodes of stop breathing during the sleep witnessed by his . Patient wakes up from sleep with nocturia 1. No history of hypnogogical hallucinations, sleep paralysis, or cataplexy. DURING THE DAY/WAKE STATE: In the morning patient has difficulties to pay attention. [place] sleepiness scale is 4. Patient takes 1 nap at noontime. PAST MEDICAL HISTORY: Hypertension, diabetes mellitus type 2, hyperlipidemia. PAST SURGICAL HISTORY:: His action for diverticulitis 12 inches, hernia repair. MEDICATIONS: Atorvastatin, metformin 500 mg twice a day, irbesartan/hydrochlorothiazide. SOCIAL HISTORY: Negative for smoking, alcohol consumption occasional. FAMILY HISTORY: Cancer, diabetes, tuberculosis. REVIEW OF SYSTEMS: Snoring, awakenings from sleep, episodes of sleepiness during the day. No fevers. No double vision. No recent chest pain. No shortness of breath. No abdominal pain. No bleeding episodes. No blood in urine. No seizure episodes. PHYSICAL EXAMINATION: GENERAL: A pleasant patient without any distress. VITAL SIGNS: BP 122/85, HR 101, RR 18, weight 263.8 pounds, height 5 foot 7.5 inches, body mass index 40.5. HEENT: PERRLA, EOMI. Evaluation of oropharynx showed tongue protrudes midline, low position of soft palate Mallampati 4. NECK: Supple. No JVD. Thyroid is not palpable. 20 inches in circumference. LUNGS: Clear to percussion and to auscultation. Good air exchange. No wheezing or rhonchi. HEART: S1, S2 regular. No murmurs, gallops or rubs. ABDOMEN: Soft and nontender. Bowel sounds are present. No organomegaly appreciated. EXTREMITIES: No clubbing or cyanosis. LEDGE MAN: Awake, alert, and oriented x3. Cranial nerves 2 to 7 intact. There is no fasciculation or atrophy noted. No focal deficits observed. ASSESSMENT: 1. Snoring, witnessed episodes of stop breathing during the sleep, extremely low position of soft palate Mallampati 4, extremely wide neck 20 inches in circumference. Obstructive sleep apnea hypopnea syndrome. 2. Obesity, BMI 40.5. 3. Hypertension. 4. Diabetes mellitus type 2. 5 hyperlipidemia. 6 . Status post 12 inch colon resection for diverticulitis. 7. Status post hernia repair. PLAN: 1. Polysomnography for evaluation of patient's breathing during sleep. 2. CPAP/BiPAP titration if sleep study confirms obstructive sleep apnea- hypopnea syndrome. 3. Preferable position during sleep on the side. 4. No driving if patient feels any sleepiness. Patient is aware of civil and criminal liability for unsafe driving. 5. Sleep hygiene with regular sleep time for at least 7.5-8 hours. 6. Watching and losing weight. Thank you very much for referring this patient for consultation. Sincerely, Sundeep Zafar MD, PhD, FAASM. Diplomat of [place] [employer], Sleep Medicine Board by [place] [employer] [place] [employer] Gauge And Instrument Inspector of [facility] [place] Past Medical History Past Medical History: Hypertension Additional Past Medical History / Comment(s): diverticulitis History of Any Multi-Drug Resistant Organisms: None Reported Past Surgical History: Bowel Resection, Hernia Repair, Orthopedic Surgery, Tonsillectomy Additional Past Surgical History / Comment(s): left hand sx to reattached 2nd, 3rd and 4th digits d/t work related injury-has full function of hand, lt ing hernia repair, lt er drum replaced, egd/colonoscopy Past Anesthesia/Blood Transfusion Reactions: No Reported Reaction Past Psychological History: No Psychological Hx Reported Additional Psychological History / Comment(s): . Past Alcohol Use History: Occasional Additional Past Alcohol Use History / Comment(s): started smoking cigars at age 29- smokes occ Past Drug Use History: None Reported - Past Family History Mother Family Medical History: Cancer Additional Family Medical History / Comment(s): lung cancer- hx smoking Father Family Medical History: Cancer Additional Family Medical History / Comment(s): had tb while in [place]-had scar tissue. from lung cancer Medications and Allergies Home Medications Medication Instructions Recorded Confirmed Type Irbesartan/Hydrochlorothiazide 1 tab PO DAILY 02/10/17 02/19/20 History [Irbesartan-Hctz 300-12.5 mg Tb] Escitalopram [Lexapro] 10 mg PO HS tab 01/28/18 02/13/20 Rx metFORMIN HCL [Glucophage] 500 mg PO BID 02/13/20 02/13/20 History Docusate [Colace] 100 mg PO BID #20 capsule 02/19/20 Rx HYDROcodone/APAP 5-325MG [[place] 1 tab PO Q6HR PRN #10 tab 02/19/20 Rx 5-325] Allergies Allergy/AdvReac Type Severity Reaction Status Date / Time No Known Allergies Allergy Verified 02/13/20 13:07 Sleep Note - Sleep Note Sleep Note: Temperature: Pulse Rate: Respiratory Rate: Blood Pressure: SpO2: Height: Weight: BMI: Neck Circumference:
== END ==
LOC: 3 N SLEEP 14:47
PROVIDERS: ATTEND Internal Medicine
DX: G47.33 Obstructive sleep apnea (adult) (pediatric) (principal); E66.9 Obesity, unspecified; I10 Essential (primary) hypertension; E11.9 Type 2 diabetes mellitus without complications; F17.200 Nicotine dependence, unspecified, uncomplicated; E78.5 Hyperlipidemia, unspecified; Z98.890 Other specified postprocedural states; Z68.41 Body mass index [BMI] 40.0-44.9, adult; Z79.899 Other long term (current) drug therapy; Z79.84 Long term (current) use of oral hypoglycemic drugs
CPT/HCPCS: 99211

== ENCOUNTER → 2023-07-26 | Outpatient (CLI) | payer BC, MEDICAID ==
--- NOTE | 2023-07-27 11:59 | P.PN ---
Subjective CLINICAL: A home sleep apnea test has been done for confirmation of possible obstructive sleep apnea-hypopnea syndrome. DESCRIPTION OF PROCEDURE: RESULTS: Recording time was 9 hours 28 minutes. Evaluation time was 9 hours 15 minutes. Evaluation time is sufficient for making conclusion about results of the test. Raw data of sleep recording has been reviewed and is adequate. Respiratory channel showed 73 apneas and 40 hypopneas. Apnea-hypopnea index was 12.2 per hour. Pulse rate in the range between minimum 54, maximum 87, average 64 by computer calculation. Lowest desaturation was 77 %. IMPRESSION: 1. Obstructive Sleep Apnea Hypopnea Syndrome. 2. Hypertension. Please see other impressions from consultation. PLAN: 1. The patient will be started on auto-PAP treatment for correction of respiratory abnormallities during sleep. 2. I will see patient for follow up visit to discuss results of the test, evaluate clinical response on treatment with PAP therapy and make any necessary adjustments related to mask fitting, pressure, and humidification. 3. Watching and losing weight. 4. Sleep hygiene with regular time in bed for at least 8 hours. 5. No driving if feeling any sleepiness. Thank you very much for allowing me to participate in the management of your patient. Sincerely, Sundeep Zafar MD, PhD, FAASM Diplomat of [place] [employer] Sleep Medicine Board of [place] [employer] Information Services Tech of [facility] [place]
== END ==
LOC: 3 N SLEEP 11:00
PROVIDERS: ATTEND Internal Medicine
DX: G47.33 Obstructive sleep apnea (adult) (pediatric) (principal); I10 Essential (primary) hypertension; F17.200 Nicotine dependence, unspecified, uncomplicated

== ENCOUNTER → 2023-10-25 | Outpatient (CLI) | payer BC, MEDICAID ==
[2023-10-25 15:50] VITALS: BP 124/81; PULSE 79; RESP 16; TEMP 97.8
--- NOTE | 2023-10-25 17:42 | P.PN ---
Subjective DATE: 10/25/2023 FOLLOW UP VISIT. Patient with obstructive sleep apnea hypopnea syndrome return to sleep center for follow-up visit. Information from previous visit have been reviewed. Patient is using PAP equipment every night for the whole night, getting PAP supplies in time. The patient does not have significant problems with the mask, PAP unit and humidification. [place] sleepiness scale is 4, which is normal. I checked information from PAP unit. PAP unit pressure 5-15, average 10.5 cm H2O. Usage is 93% , average 4 hours per night. Leak is 6.0 l/m, which is in acceptable range. Apnea Hypopnea Index is 4.4, which is normal. MEDICATIONS:1. Atorvastatin 2. Metformin 500 mg twice a day 3. irbesartan/hydrochlorothiazide During physical exam: GENERAL: A pleasant patient without any distress. VITAL SIGNS: Please see below. HEENT: PERRLA, EOMI.low position of soft palate, Mallapati 4 . NECK: Supple. No JVD. LUNGS: Clear to percussion and to auscultation. Good air exchange. No wheezing or rhonchi. HEART: S1, S2 regular. ABDOMEN: Soft and nontender.[] EXTREMITIES: No clubbing or cyanosis. INFORMATION OPERATOR: Awake, alert, and oriented x3. No focal deficit. Impressions: 1. Obstructive sleep apnea-hypopnea syndrome. Patient demonstrated borderline compliance with treatment, benefiting from treatment. 2. Obesity. 3. Hypertension. 4. Diabetes mellitus type 2. 5. Status post duodenum resection for diverticulitis. 6. Hyperlipidemia. 7. Status post hernia repair. Plan: 1. Continue using PAP equipment every night for the whole night. 2. To change air filter at least 1-2 times per month. 3. PAP unit should stay lower then position of the head. 4. Advised patient to remove all remaining water from humidifier canister daily and make it dry after each usage. Refill canister with fresh distilled water before each usage. 5. Sleep hygiene with regular time in bed for at least 8 hours. 6. Precautions related to driving. No driving if feel any sleepiness. 7. I will maintain prescription for PAP supplies including mask, tube, filters. 8. Follow up visit in 6 months or earlier if patient has any problems. 9. Watching and losing weight. Thank you very much for allowing me to participate in the management of your patient. Sundeep Zafar MD, PhD, FAASM. Diplomat of [place] [employer], Sleep Medicine Board by [place] [employer] Maintenance Service Supervisor of [facility] [place] Objective - Vital Signs Vital signs: Vital Signs Temp 97.8 F 10/25/23 15:18 Pulse 79 10/25/23 15:18 Resp 16 10/25/23 15:18 BP 124/81 10/25/23 15:18 Pulse Ox 96 10/25/23 15:18 FiO2 Intake & Output 10/24/23 10/25/23 10/25/23 18:59 06:59 18:59 Weight 119.295 kg
== END ==
LOC: 3 N SLEEP 14:45
PROVIDERS: ATTEND Internal Medicine
DX: G47.33 Obstructive sleep apnea (adult) (pediatric) (principal); E66.9 Obesity, unspecified; I10 Essential (primary) hypertension; E11.9 Type 2 diabetes mellitus without complications; E78.5 Hyperlipidemia, unspecified; F17.200 Nicotine dependence, unspecified, uncomplicated; Z98.890 Other specified postprocedural states; Z79.84 Long term (current) use of oral hypoglycemic drugs; Z99.89 Dependence on other enabling machines and devices; Z79.899 Other long term (current) drug therapy; Z68.41 Body mass index [BMI] 40.0-44.9, adult
CPT/HCPCS: 99212

== ENCOUNTER 2023-11-02 06:31 | Day surgery (SDC) | payer BC, MEDICAID ==
[2023-11-02] MEDS: LACTATED RINGERS 1,000 ML IV SCH (07:00)
[2023-11-02 07:14] LABS: Glucose,Whole Blood 129 mg/dL (70-110)
[2023-11-02 07:23] VITALS: TEMP 96.9
[2023-11-02] MEDS ORDERED: PROPOFOL 10 MG/ML 20 ML VIAL IV ONE (07:41)
[2023-11-02] MEDS ORDERED: LIDOCAINE 2% (PF) 20 MG/ML 5 ML VIAL ONE (07:41)
--- NOTE | 2023-11-02 07:44 | P.GSHP ---
History of Present Illness H&P Date: 11/02/23 Chief Complaint: GERD, screening colonoscopy This a 58-year-old male who has complaints of GERD. Patient presents today for EGD as well as screening colonoscopy. Patient's. History of diverticulitis. Past Medical History Past Medical History: Diabetes Mellitus, Hyperlipidemia, Hypertension Additional Past Medical History / Comment(s): diverticulitis History of Any Multi-Drug Resistant Organisms: None Reported Past Surgical History: Bowel Resection, Hernia Repair, Orthopedic Surgery, Tonsillectomy Additional Past Surgical History / Comment(s): left hand sx to reattached 2nd, 3rd and 4th digits d/t work related injury-has full function of hand, lt ing hernia repair, lt er drum replaced, egd/colonoscopy Past Anesthesia/Blood Transfusion Reactions: No Reported Reaction Smoking Status: Light tobacco smoker - Past Family History Mother Family Medical History: Cancer Additional Family Medical History / Comment(s): lung cancer- hx smoking Father Family Medical History: Cancer Additional Family Medical History / Comment(s): had tb while in [place]-had scar tissue. from lung cancer Medications and Allergies Home Medications Medication Instructions Recorded Confirmed Type Irbesartan/Hydrochlorothiazide 1 tab PO DAILY 02/10/17 10/30/23 History [Irbesartan-Hctz 300-12.5 mg Tb] Escitalopram [Lexapro] 10 mg PO HS tab 01/28/18 10/30/23 Rx metFORMIN HCL [Glucophage] 500 mg PO TID 02/13/20 10/30/23 History Atorvastatin [Lipitor] 40 mg PO DAILY 10/30/23 10/30/23 History Allergies Allergy/AdvReac Type Severity Reaction Status Date / Time No Known Allergies Allergy Verified 11/02/23 06:50 Surgical - Exam Vital Signs Temp Pulse Resp BP Pulse Ox 96.9 F L 68 16 144/89 96 11/02/23 06:55 11/02/23 06:55 11/02/23 06:55 11/02/23 06:55 11/02/23 06:55 - General well developed, well nourished, no distress - Eyes PERRL - ENT normal pinna - Neck no masses - Respiratory normal expansion - Cardiovascular Rhythm: regular - Abdomen Abdomen: soft, non tender Results - Labs Abnormal Lab Results - Last 24 Hours (Table) 03/21/24 Range/Units 07:04 POC Glucose (mg/dL) 129 H (70-110) mg/dL Assessment and Plan Assessment: GERD. We'll perform EGD. We'll also perform screening colonoscopy.
--- NOTE | 2023-11-02 08:07 | P.OP ---
Date of Procedure: 11/02/23 Preoperative Diagnosis: GERD Screening colonoscopy Postoperative Diagnosis: Antral gastritis Mild esophagitis Diverticulosis Procedure(s) Performed: Colonoscopy EGD Anesthesia: MAC Surgeon: Pepe Ruiz Pathology: other (Antrum, esophagus) Condition: stable Disposition: PACU Description of Procedure: The patient's placed on the endoscopy table in the lateral position. He received IV sedation. Digital rectal exam was performed. This revealed no ebonized. Flexible colonoscope was then placed patient anus passed throughout the entire colon. The ileocecal valve was visually is. The cecum, ascending and transverse colon appeared normal. The descending and; had mild diverticular changes. The patient a previous low anterior section. The rectum appeared normal. Scope withdrawn for patient. Next the gastroscope oropharynx past esophagus and stomach. Scope some placed through the pylorus. The first and second portion of the duodenum appeared normal. Scope was then brought back the antrum this. Mildly inflamed. A biopsies performed. Scope was then retroflexed and the remainder the stomach appeared normal. The GE junction was at 40 cm per the distal esophagus appeared minimally inflamed. A biopsies performed. The proximal esophagus appeared normal. Scope withdrawn for patient.
[2023-11-02 08:23] LABS: Glucose,Whole Blood 119 mg/dL (70-110)
[2023-11-02 08:32] VITALS: BP 130/81; PULSE 61; RESP 18
== END 2023-11-02 08:50 | disposition home or self-care (01) ==
LOC: ORWHC2ENDO 06:31
PROVIDERS: ATTEND Surgery
DX: Z12.11 Encounter for screening for malignant neoplasm of colon (principal); K57.30 Diverticulosis of large intestine without perforation or abscess without bleeding; K21.00 Gastro-esophageal reflux disease with esophagitis, without bleeding; E11.9 Type 2 diabetes mellitus without complications; E78.5 Hyperlipidemia, unspecified; I10 Essential (primary) hypertension; F17.290 Nicotine dependence, other tobacco product, uncomplicated; Z79.84 Long term (current) use of oral hypoglycemic drugs; Z79.899 Other long term (current) drug therapy
CPT/HCPCS: 88305; 45378; 43239; J2704; J2001

== ENCOUNTER → 2024-05-22 | Outpatient (CLI) | payer BC, MEDICAID ==
[2024-05-22 13:57] VITALS: BP 126/87; PULSE 92; RESP 18; TEMP 97.8
--- NOTE | 2024-05-22 14:16 | P.PROGSL ---
Subjective DATE: 05/22/2024 FOLLOW UP VISIT. Patient with obstructive sleep apnea hypopnea syndrome return to sleep center for follow-up visit. Information from previous visit have been reviewed. Patient was not able to use CPAP equipment for several months secondary to significant allergy. The patient does not have significant problems with the mask, PAP unit and humidification. [place] sleepiness scale is 5, which is normal. I checked information from PAP unit. PAP unit pressure 5-18, average 11.4 cm H2O. Usage is 46 out of 180 nights % for more then 4 hours, average 4.2 hours hours per night. Leak is 17 l/m, which is in acceptable range. Apnea Hypopnea Index is 5.9, which is acceptable. MEDICATIONS have been reviewed, please see below. During physical exam: GENERAL: A pleasant patient without any distress. VITAL SIGNS: Please see below, weight is 256.8 lbs. HEENT: PERRLA, EOMI.low position of soft palate, [place] 4 . NECK: Supple. No JVD. LUNGS: Clear to percussion and to auscultation. Good air exchange. No wheezing or rhonchi. HEART: S1, S2 regular. ABDOMEN: Soft and nontender. Obese EXTREMITIES: No clubbing or cyanosis. [employer]: Awake, alert, and oriented x3. No focal deficit. Impressions: 1. Obstructive sleep apnea-hypopnea syndrome. Patient demonstrated low compliance with treatment. Practically normal respiration while using CPAP. 2. Obesity, BMI 39.2. 3. Hypertension. 4. Diabetes mellitus, recent hemoglobin A1c according to patient 7. 5. Hyperlipidemia. 6. Status post hernia repair. 7. Status post duodenum resection for diverticulitis. Plan: 1. Continue using PAP equipment every night for the whole night. 2. Sleep hygiene with regular time in bed for at least 7.5-8 hours 3. We discussed possibility to use oral appliances for treatment of obstructive sleep apnea hypopnea syndrome. 4. Patient will have evaluation by dentist for oral appliances. 5. Watching and losing weight. 6. Precautions related to driving. No driving if feel any sleepiness. 7. I will maintain prescription for PAP supplies including mask, tube, filters. 8. Follow up visit in 6 months or earlier if patient has any problems. Thank you very much for allowing me to participate in the management of your patient. Sundeep Zafar MD, PhD, FAASM. Diplomat of [employer], Sleep Medicine Board by [employer] [facility] [place] cc: Berry Herrera MD Objective - Vital Signs Vital Signs: Vital Signs Temp 97.8 F 05/22/24 13:57 Pulse 92 05/22/24 13:57 Resp 18 05/22/24 13:57 BP 126/87 05/22/24 13:57 Pulse Ox 97 05/22/24 13:57 FiO2 Intake & Output 05/21/24 05/22/24 05/22/24 18:59 06:59 18:59 Weight 116.346 kg Home Medications: Home Medications Medication Instructions Recorded Confirmed Type Irbesartan/Hydrochlorothiazide 1 tab PO DAILY 02/10/17 05/22/24 History [Irbesartan-Hctz 300-12.5 mg Tb] Escitalopram [Lexapro] 10 mg PO HS tab 01/28/18 05/22/24 Rx metFORMIN HCL [Glucophage] 500 mg PO DAILY 02/13/20 05/22/24 History Atorvastatin [Lipitor] 4 mg PO DAILY 10/30/23 05/22/24 History Semaglutide [Ozempic] 0.5 mg IM WEEKLY 05/22/24 05/22/24 History
== END | disposition home or self-care (01) ==
LOC: 3 N SLEEP 13:25
PROVIDERS: ATTEND Internal Medicine
DX: G47.33 Obstructive sleep apnea (adult) (pediatric) (principal); E66.9 Obesity, unspecified; I10 Essential (primary) hypertension; E11.9 Type 2 diabetes mellitus without complications; E78.5 Hyperlipidemia, unspecified; F17.200 Nicotine dependence, unspecified, uncomplicated; Z90.49 Acquired absence of other specified parts of digestive tract; Z98.890 Other specified postprocedural states; Z99.89 Dependence on other enabling machines and devices; Z68.39 Body mass index [BMI] 39.0-39.9, adult; Z79.85 Long-term (current) use of injectable non-insulin antidiabetic drugs; Z79.899 Other long term (current) drug therapy
CPT/HCPCS: 99212